=== PATIENT | female | born 2000 | race American Indian/Alaskan Native ===

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

== ENCOUNTER 2018-08-24 09:56 | Emergency (ER) | payer SELFPAY ==
[2018-08-24] MEDS ORDERED: TYLENOL PO ONE (13:35)
[2018-08-24] MEDS ORDERED: REGLAN PO ONE (13:35)
--- NOTE | 2018-08-24 13:36 | Emergency Department Report ---
ED Female HPI - General Chief complaint: Abdominal Pain Stated complaint: ABD PAIN/4DAYS Time Seen by Provider: 08/24/18 12:09 Source: patient Mode of arrival: Ambulatory Limitations: No Limitations - History of Present Illness Initial comments: This is a 17-year-old female nontoxic, well nourished in appearance, no acute signs of distress presents to the ED with c/o of nausea and pelvic pain 4 days. Patient stated "feels like menstrual cramping". Patient denies any vomiting. Patient describes pelvic pain as cramping and aching with level of 3/10 diffuse. Patient denies chest pain, short of breath, fever, chills, headache, stiff neck, numbness or tingling. Patient denies any vaginal bleeding. Patient denies any diarrhea or constipation. Patient denies any recent travels. Patient denies any allergies. Stated menstrual cycle was last month and coming up this week. MD Complaint: pelvic pain -: days(s) (4) Radiation: non-radiating Severity: mild Severity scale (0 -10): 3 Quality: cramping, aching Consistency: intermittent Improves with: none Worsens with: none Are you Now?: No Associated Symptoms: other (pelvic cramping). denies: vaginal discharge, vaginal bleeding, abdominal pain, nausea/vomiting, fever/chills, headaches, loss of appetite, dysuria, hematuria, rash, seizure, shortness of breath, syncope, weakness - Related Data Previous Rx's Medication Instructions Recorded Last Taken Type Ibuprofen [Motrin 400 MG tab] 400 mg PO Q8H PRN #30 tablet 05/19/14 Unknown Rx Ondansetron [Zofran] 4 mg PO Q6HR PRN #12 tablet 05/19/14 Unknown Rx Ibuprofen [Motrin] 600 mg PO Q8H PRN #15 tablet 05/14/16 Unknown Rx Ondansetron [Zofran Odt] 4 mg PO Q8HR #15 tab.rapdis 05/14/16 Unknown Rx Amoxicillin [Amoxicillin 400 MG/5 800 mg PO BID #140 ml 09/21/16 Unknown Rx ML] Ibuprofen Oral Liqd [Motrin] 400 mg PO TID PRN #120 ml 09/21/16 Unknown Rx Prednisolone Sod Phosphate 10 mg PO QDAY #5 tab.rapdis 04/10/17 Unknown Rx [Orapred Odt] Ondansetron [Zofran ODT TAB] 4 mg PO Q8H PRN #15 tab.rapdis 09/28/17 Unknown Rx Phenazopyridine [Pyridium] 100 mg PO Q8H PRN #9 tab 09/28/17 Unknown Rx Sulfamethoxazole/Trimethoprim 1 each PO BID 10 Days #20 tablet 09/28/17 Unknown Rx [Bactrim DS TAB] Cetirizine HCl [ZyrTEC] 10 mg PO QDAY 14 Days #14 capsule 11/09/17 Unknown Rx Fluticasone [Flonase] 1 spray NS QDAY 14 Days #1 bottle 11/09/17 Unknown Rx Ibuprofen [Motrin] 600 mg PO Q8H PRN #12 tablet 11/09/17 Unknown Rx Dicyclomine [Bentyl] 20 mg PO QID PRN #20 tablet 05/23/18 Unknown Rx Doxycycline [Vibramycin CAP] 100 mg PO Q12HR 14 Days #28 capsule 05/23/18 Unkn own Rx Ondansetron [Zofran Odt] 4 mg PO Q8HR PRN #20 tab.rapdis 05/23/18 Unknown Rx traMADol [Ultram] 50 mg PO Q6HR PRN #7 tablet 05/23/18 Unknown Rx Ibuprofen [Motrin] 600 mg PO Q8H PRN #20 tablet 08/24/18 Unknown Rx Ondansetron [Zofran Odt] 4 mg PO Q8HR PRN #20 tab.rapdis 08/24/18 Unknown Rx Allergies Allergy/AdvReac Type Severity Reaction Status Date / Time No Known Allergies Allergy Verified 11/09/17 17:21 ED Review of Systems ROS: Stated complaint: ABD PAIN/4DAYS Other details as noted in HPI Constitutional: denies: chills, fever Eyes: denies: eye pain, eye discharge, vision change ENT: denies: ear pain, throat pain Respiratory: denies: cough, shortness of breath, wheezing Cardiovascular: denies: chest pain, palpitations Endocrine: no symptoms reported Gastrointestinal: denies: abdominal pain, nausea, diarrhea Genitourinary: denies: urgency, dysuria, discharge Musculoskeletal: denies: back pain, joint swelling, arthralgia Skin: denies: rash, lesions Neurological: denies: headache, weakness, paresthesias Psychiatric: denies: anxiety, depression Hematological/Lymphatic: denies: easy bleeding, easy bruising ED Past Medical Hx - Past Medical History Previous Medical History?: No Additional medical history: sore throat. exposure to black mold for over 3 months. - Surgical History Past Surgical History?: No - Social History Smoking Status: Current Every Day Smoker Substance Use Type: None - Medications Home Medications: Home Medications Medication Instructions Recorded Confirmed Last Taken Type Ibuprofen [Motrin 400 MG tab] 400 mg PO Q8H PRN #30 tablet 05/19/14 Unknown Rx Ondansetron [Zofran] 4 mg PO Q6HR PRN #12 tablet 05/19/14 Unknown Rx Ibuprofen [Motrin] 600 mg PO Q8H PRN #15 tablet 05/14/16 Unknown Rx Ondansetron [Zofran Odt] 4 mg PO Q8HR #15 tab.rapdis 05/14/16 Unknown Rx Amoxicillin [Amoxicillin 400 MG/5 800 mg PO BID #140 ml 09/21/16 Unknown Rx ML] Ibuprofen Oral Liqd [Motrin] 400 mg PO TID PRN #120 ml 09/21/16 Unknown Rx Prednisolone Sod Phosphate 10 mg PO QDAY #5 tab.rapdis 09/21/16 Unknown Rx [Orapred Odt] Ondansetron [Zofran ODT TAB] 4 mg PO Q8H PRN #15 tab.rapdis 09/28/17 Unknown Rx Phenazopyridine [Pyridium] 100 mg PO Q8H PRN #9 tab 09/28/17 Unknown Rx Sulfamethoxazole/Trimethoprim 1 each PO BID 10 Days #20 tablet 09/28/17 Unknown Rx [Bactrim DS TAB] Cetirizine HCl [ZyrTEC] 10 mg PO QDAY 14 Days #14 capsule 11/09/17 Unknown Rx Fluticasone [Flonase] 1 spray NS QDAY 14 Days #1 bottle 11/09/17 Unknown Rx Ibuprofen [Motrin] 600 mg PO Q8H PRN #12 tablet 11/09/17 Unknown Rx Dicyclomine [Bentyl] 20 mg PO QID PRN #20 tablet 05/23/18 Unknown Rx Doxycycline [Vibramycin CAP] 100 mg PO Q12HR 14 Days #28 capsule 05/23/18 Unknown Rx Ondansetron [Zofran Odt] 4 mg PO Q8HR PRN #20 tab.rapdis 05/23/18 Unknown Rx traMADol [Ultram] 50 mg PO Q6HR PRN #7 tablet 05/23/18 Unknown Rx Ibuprofen [Motrin] 600 mg PO Q8H PRN #20 tablet 08/24/18 Unknown Rx Ondansetron [Zofran Odt] 4 mg PO Q8HR PRN #20 tab.rapdis 08/24/18 Unknown Rx ED Physical Exam - General Limitations: No Limitations General appearance: alert, in no apparent distress - Head Head exam: Present: atraumatic, normocephalic - Eye Eye exam: Present: normal appearance - Neck Neck exam: Present: normal inspection, full ROM. Absent: tenderness, meningismu s, lymphadenopathy - Respiratory Respiratory exam: Present: normal lung sounds bilaterally. Absent: respiratory distress, wheezes, rales, rhonchi, stridor, chest wall tenderness, accessory muscle use, decreased breath sounds, prolonged expiratory - Cardiovascular Cardiovascular Exam: Present: regular rate, normal rhythm, normal heart sounds. Absent: bradycardia, tachycardia, irregular rhythm, systolic murmur, diastolic murmur, rubs, gallop - GI/Abdominal GI/Abdominal exam: Present: soft, normal bowel sounds. Absent: distended, tenderness, guarding, rebound, rigid, diminished bowel sounds - Expanded GI/Abdominal Exam Expanded GI/Abdominal exam: Absent: psoas sign, Crews's sign, Rovsing's sign, tenderness at [place]bur[place]'s Point, ascites - Extremities Exam Extremities exam: Present: normal inspection, full ROM - Back Exam Back exam: Present: normal inspection, full ROM. Absent: tenderness, CVA tenderness (R), CVA tenderness (L), muscle spasm, paraspinal tenderness, vertebral tenderness, rash noted - Neurological Exam Neurological exam: Present: alert, oriented X3 - Psychiatric Psychiatric exam: Present: normal affect, normal mood - Skin Skin exam: Present: warm, dry, intact, normal color. Absent: rash ED Course Vital Signs 08/24/18 08/24/18 10:12 14:19 Temperature 98.3 F Pulse Rate 69 Respiratory 18 18 Rate Blood Pressure 92/71 O2 Sat by Pulse 99 Oximetry - Reevaluation(s) Reevaluation #1: 08/24/18 13:34 Patient is speaking in full sentences with no signs of distress noted. ED Medical Decision Making - Lab Data Result diagrams: 08/24/18 13:54 08/24/18 13:54 - Medical Decision Making This is a 17-year-old female that presents with pelvic cramping. Patient is stable and was examined by me. There is no abdominal tenderness. Negative signs of symptoms of appendicitis. Labs obtained. UA obtained. Patient is notified of the report with no questions noted by the patient. Vital signs are stable prior to discharge. Patient received medical treatment in the ED which patient stated symptoms has resolved and subsided. A by mouth challenge has been obtained and patient tolerated well with no nausea vomiting. Patient was notified of strict precautions of appendicitis symptoms and to return to the ED if symptoms occurs as soon as possible. Patient was also instructed to Follow-up with a primary care doctor in 3-5 days or if symptoms worsen and continue return to emergency room as soon as possible. At time of discharge, the patient does not seem toxic or ill in appearance. No acute signs of distress noted. Patient agrees to discharge treatment plan of care. No further questions noted by the patient. Critical care attestation.: If time is entered above; I have spent that time in minutes in the direct care of this critically ill patient, excluding procedure time. ED Disposition Clinical Impression: Pelvic cramping, Nausea Disposition: DC-01 TO HOME OR SELFCARE Is pt being admited?: No Does the pt Need Aspirin: No Condition: Stable Instructions: Abdominal Pain (ED) Additional Instructions: Follow-up with a primary care doctor in 3-5 days or if symptoms worsen and continue return to emergency room as soon as possible. Prescriptions: Ibuprofen [Motrin] 600 mg PO Q8H PRN #20 tablet PRN Reason: Pain Ondansetron [Zofran Odt] 4 mg PO Q8HR PRN #20 tab.rapdis PRN Reason: Nausea Referrals: YUE AKINS MD [Primary Care Provider] - 3-5 Days KYM URIAS MD [Referring] - 3-5 Days NAHOMI BRICENO MD [Staff Physician] - 3-5 Days [facility] [Outside] - 3-5 Days Forms: Work/School Release Form(ED)
[2018-08-24 13:39] LABS: Bacteria,Urine 1+ /HPF (Negative); Bilirubin,Urine NEG (Negative); Blood,Urine NEG (Negative); Color,Urine Yellow (Yellow); Mucus,Urine 3+ /HPF
[2018-08-24 14:07] LABS: Basophils % (Auto) 0.5 % (0.0-1.8); Eosinophils # (Auto) 0.1 K/mm3 (0.0-0.4); Eosinophils % (Auto) 0.6 % (0.0-4.3); Hematocrit 35.9 % (30.3-42.9); Hemoglobin 11.7 gm/dl (10.1-14.3); Lymphocytes # (Auto) 3.6 K/mm3 (1.2-5.4); Lymphocytes % (Auto) 36.1 % (13.4-35.0); Mean Corpuscular HGB Conc 33 % (30-34); Mean Corpuscular Volume 84 fl (79-97); Monocytes # (Auto) 0.9 K/mm3 (0.0-0.8); Monocytes % (Auto) 9.1 % (0.0-7.3); Platelet Count 239 K/mm3 (140-440); Red Blood Count 4.29 M/mm3 (3.65-5.03); Red Cell Distribution Width 16.8 % (13.2-15.2)
[2018-08-24 14:25] LABS: Alanine Aminotransferase 17 units/L (7-56); Albumin 4.2 g/dL (3.9-5); BUN/Creatinine Ratio 12; Blood Urea Nitrogen 6 mg/dL (7-17); Hemolysis Index 7
[2018-08-24 14:28] LABS: Bilirubin,Direct < 0.2 mg/dL (0-0.2)
[2018-08-24 14:38] VITALS: BP 97/64
== END 2018-08-24 14:40 | disposition home or self-care (01) ==
LOC: ED 09:56
DX: R10.2 Pelvic and perineal pain (principal); R11.0 Nausea; F17.200 Nicotine dependence, unspecified, uncomplicated
CPT/HCPCS: 36415; 80048; 80076; 81001; 83690; 84702; 85025; 99283

== ENCOUNTER 2019-01-30 17:41 | Emergency (ER) | payer SELFPAY ==
[2019-01-30] MEDS ORDERED: DELTASONE PO ONE (21:09)
[2019-01-30] MEDS ORDERED: TYLENOL PO ONE (21:09)
[2019-01-30] MEDS ORDERED: PROVENTIL IH ONE (21:09)
--- NOTE | 2019-01-30 21:31 | Emergency Department Report ---
- General Chief Complaint: Upper Respiratory Infection Stated Complaint: LATE CYCLE/COLD SYMPTOMS Time Seen by Provider: 01/30/19 21:07 Source: patient Mode of arrival: Ambulatory Limitations: No Limitations - History of Present Illness Initial Comments: The patient is a 17-year-old female who presents for URI symptoms secondary complaint of late menses last menstrual period 6 weeks ago URI symptoms cyst of cough wheezing cough is productive yellow-green nocturnal fever no MAXIMUM TEMPERATURE recorded by patient none and triaged today symptoms are exacerbated by foraminal exposure there is no history of asthma states occasional bronchitis and URIs there is no nausea vomiting no fever chills at this time. MD Complaint: cough, sore throat, rhinorrhea, nasal congestion Onset/Timin -: week(s) Severity: moderate Severity scale (0 -10): 5 Quality: aching Consistency: constant Improves With: nothing Worsens With: other (environmental exposure ) Context: sick contacts Associated Symptoms: fever, chills, headache, rhinorrhea, nasal congestion, cough, shortness of breath Treatments Prior to Arrival: none - Related Data Previous Rx's Medication Instructions Recorded Last Taken Type Ibuprofen [Motrin 400 MG tab] 400 mg PO Q8H PRN #30 tablet 05/19/14 Unknown Rx Ondansetron [Zofran] 4 mg PO Q6HR PRN #12 tablet 05/19/14 Unknown Rx Ibuprofen [Motrin] 600 mg PO Q8H PRN #15 tablet 05/14/16 Unknown Rx Ondansetron [Zofran Odt] 4 mg PO Q8HR #15 tab.rapdis 05/14/16 Unknown Rx Amoxicillin [Amoxicillin 400 MG/5 800 mg PO BID #140 ml 09/21/16 Unknown Rx ML] Ibuprofen Oral Liqd [Motrin] 400 mg PO TID PRN #120 ml 09/21/16 Unknown Rx Prednisolone Sod Phosphate 10 mg PO QDAY #5 tab.rapdis 09/21/16 Unknown Rx [Orapred Odt] Ondansetron [Zofran ODT TAB] 4 mg PO Q8H PRN #15 tab.rapdis 09/28/17 Unknown Rx Phenazopyridine [Pyridium] 100 mg PO Q8H PRN #9 tab 09/28/17 Unknown Rx Sulfamethoxazole/Trimethoprim 1 each PO BID 10 Days #20 tablet 04/17/18 Unknown Rx [Bactrim DS TAB] Cetirizine HCl [ZyrTEC] 10 mg PO QDAY 14 Days #14 capsule 11/09/17 Unknown Rx Fluticasone [Flonase] 1 spray NS QDAY 14 Days #1 bottle 11/09/17 Unknown Rx Ibuprofen [Motrin] 600 mg PO Q8H PRN #12 tablet 11/09/17 Unknown Rx DOXYCYCLINE Hyclate [Vibramycin 100 mg PO Q12HR 14 Days #28 capsule 05/23/18 Unknown Rx CAP] Dicyclomine [Bentyl] 20 mg PO QID PRN #20 tablet 05/23/18 Unknown Rx Ondansetron [Zofran Odt] 4 mg PO Q8HR PRN #20 tab.rapdis 05/23/18 Unknown Rx traMADol [Ultram] 50 mg PO Q6HR PRN #7 tablet 05/23/18 Unknown Rx Ibuprofen [Motrin] 600 mg PO Q8H PRN #20 tablet 08/24/18 Unknown Rx Ondansetron [Zofran Odt] 4 mg PO Q8HR PRN #20 tab.rapdis 08/24/18 Unknown Rx Butalb/Acetamin/Caff 50-325-40 1 - 2 each PO Q4H PRN #15 tablet 01/12/19 Unknown Rx [Fioricet 50-325-40] Ketorolac [Toradol] 10 mg PO Q8H PRN #20 tablet 01/12/19 Unknown Rx Promethazine [Phenergan] 25 mg PO Q6HR PRN #24 tab 01/12/19 Unknown Rx ALBUTEROL Inhaler (OR & NICU) 2 puff IH QID PRN #1 inhalation 01/31/19 Unknown Rx [ProAir HFA Inhaler] Azithromycin [Zithromax Z-WALI] 250 mg PO DAILY #6 tablet 01/31/19 Unknown Rx Benzonatate [Tessalon Perles] 100 mg PO Q8HR PRN #30 capsule 01/31/19 Unknown Rx Ibuprofen [Motrin 800 MG tab] 800 mg PO Q8HR PRN #30 tablet 01/31/19 Unknown Rx predniSONE [Deltasone] 40 mg PO QDAY 5 Days #10 tab 01/31/19 Unknown Rx Allergies Allergy/AdvReac Type Severity Reaction Status Date / Time No Known Allergies Allergy Verified 10/21/18 08:09 ED Review of Systems ROS: Stated complaint: LATE CYCLE/COLD SYMPTOMS Other details as noted in HPI Constitutional: chills, fever. denies: diaphoresis, malaise, weakness Eyes: as per HPI ENT: congestion. denies: ear pain, throat pain Respiratory: cough, shortness of breath, wheezing Cardiovascular: denies: chest pain, palpitations Endocrine: no symptoms reported Gastrointestinal: denies: abdominal pain, nausea, vomiting, diarrhea Genitourinary: denies: urgency, dysuria, frequency, hematuria, discharge, dyspareunia Musculoskeletal: denies: back pain, joint swelling, arthralgia Skin: denies: rash, lesions Neurological: denies: headache, weakness, paresthesias Psychiatric: denies: anxiety, depression Hematological/Lymphatic: denies: easy bleeding, easy bruising ED Past Medical Hx - Past Medical History Hx Headaches / Migraines: Yes Additional medical history: exposure to black mold for over 3 months. - Surgical History Past Surgical History?: No - Social History Smoking Status: Never Smoker Substance Use Type: None - Medications Home Medications: Home Medications Medication Instructions Recorded Confirmed Last Taken Type Ibuprofen [Motrin 400 MG tab] 400 mg PO Q8H PRN #30 tablet 05/19/14 Unknown Rx Ondansetron [Zofran] 4 mg PO Q6HR PRN #12 tablet 05/19/14 Unknown Rx Ibuprofen [Motrin] 600 mg PO Q8H PRN #15 tablet 05/14/16 Unknown Rx Ondansetron [Zofran Odt] 4 mg PO Q8HR #15 tab.rapdis 05/14/16 Unknown Rx Amoxicillin [Amoxicillin 400 MG/5 800 mg PO BID #140 ml 09/21/16 Unknown Rx ML] Ibuprofen Oral Liqd [Motrin] 400 mg PO TID PRN #120 ml 09/21/16 Unknown Rx Prednisolone Sod Phosphate 10 mg PO QDAY #5 tab.rapdis 09/21/16 Unknown Rx [Orapred Odt] Ondansetron [Zofran ODT TAB] 4 mg PO Q8H PRN #15 tab.rapdis 09/28/17 Unknown Rx Phenazopyridine [Pyridium] 100 mg PO Q8H PRN #9 tab 09/28/17 Unknown Rx Sulfamethoxazole/Trimethoprim 1 each PO BID 10 Days #20 tablet 09/28/17 Unknown Rx [Bactrim DS TAB] Cetirizine HCl [ZyrTEC] 10 mg PO QDAY 14 Days #14 capsule 11/09/17 Unknown Rx Fluticasone [Flonase] 1 spray NS QDAY 14 Days #1 bottle 11/09/17 Unknown Rx Ibuprofen [Motrin] 600 mg PO Q8H PRN #12 tablet 11/09/17 Unknown Rx DOXYCYCLINE Hyclate [Vibramycin 100 mg PO Q12HR 14 Days #28 capsule 05/23/18 Unknown Rx CAP] Dicyclomine [Bentyl] 20 mg PO QID PRN #20 tablet 05/23/18 Unknown Rx Ondansetron [Zofran Odt] 4 mg PO Q8HR PRN #20 tab.rapdis 05/23/18 Unknown Rx traMADol [Ultram] 50 mg PO Q6HR PRN #7 tablet 05/23/18 Unknown Rx Ibuprofen [Motrin] 600 mg PO Q8H PRN #20 tablet 08/24/18 Unknown Rx Ondansetron [Zofran Odt] 4 mg PO Q8HR PRN #20 tab.rapdis 08/24/18 Unknown Rx Butalb/Acetamin/Caff 50-325-40 1 - 2 each PO Q4H PRN #15 tablet 01/12/19 Unknown Rx [Fioricet 50-325-40] Ketorolac [Toradol] 10 mg PO Q8H PRN #20 tablet 01/12/19 Unknown Rx Promethazine [Phenergan] 25 mg PO Q6HR PRN #24 tab 01/12/19 Unknown Rx ALBUTEROL Inhaler (OR & NICU) 2 puff IH QID PRN #1 inhalation 01/31/19 Unknown Rx [ProAir HFA Inhaler] Azithromycin [Zithromax Z-WALI] 250 mg PO DAILY #6 tablet 01/31/19 Unknown Rx Benzonatate [Tessalon Perles] 100 mg PO Q8HR PRN #30 capsule 01/31/19 Unknown Rx Ibuprofen [Motrin 800 MG tab] 800 mg PO Q8HR PRN #30 tablet 01/31/19 Unknown Rx predniSONE [Deltasone] 40 mg PO QDAY 5 Days #10 tab 01/31/19 Unknown Rx ED Physical Exam - General Limitations: No Limitations General appearance: alert, in no apparent distress - Head Head exam: Present: atraumatic, normocephalic - Eye Eye exam: Present: normal appearance, PERRL, EOMI. Absent: conjunctival injection, nystagmus - ENT ENT exam: Present: mucous membranes moist, TM's normal bilaterally, normal external ear exam - Expanded ENT Exam Expanded Ear exam: Present: normal external inspection Mouth exam: Absent: trismus Throat exam: Positive: tonsillar erythema, tonsillomegaly, other (uvula midline moderate erythema swelling no stridor no exudate no peritonsilor abscess ). Negative: tonsillar exudate, R peritonsillar mass, L peritonsillar mass - Neck Neck exam: Present: normal inspection, full ROM. Absent: tenderness, meningismus, lymphadenopathy, thyromegaly - Respiratory Respiratory exam: Present: normal lung sounds bilaterally, wheezes. Absent: respiratory distress, rales, rhonchi, stridor, chest wall tenderness, prolonged expiratory - Cardiovascular Cardiovascular Exam: Present: regular rate, normal rhythm, normal heart sounds. Absent: systolic murmur, diastolic murmur, rubs, gallop - GI/Abdominal GI/Abdominal exam: Present: soft, normal bowel sounds. Absent: distended, tenderness, guarding, rebound, rigid, bruit, hernia - Extremities Exam Extremities exam: Present: normal inspection, full ROM, normal capillary refill. Absent: tenderness, pedal edema, joint swelling, calf tenderness - Back Exam Back exam: Present: normal inspection. Absent: full ROM, tenderness, CVA tenderness (R), CVA tenderness (L) - Neurological Exam Neurological exam: Present: alert, oriented X3, CN II-XII intact, normal gait, reflexes normal. Absent: motor sensory deficit - Psychiatric Psychiatric exam: Present: normal affect, normal mood - Skin Skin exam: Present: warm, dry, intact, normal color. Absent: rash ED Course Vital Signs 01/30/19 01/30/19 01/30/19 17:50 17:54 21:50 Temperature 98 F Pulse Rate 64 67 Pulse Rate [ 82 Bilateral Throughout] Respiratory 20 16 Rate Respiratory 20 Rate [Bilateral Throughout] Blood Pressure 123/83 Blood Pressure 113/86 [Right] O2 Sat by Pulse 100 100 Oximetry ED Medical Decision Making - Medical Decision Making pt now refuses cxr will tx for bronchitis, wheezing is resolve, will dc with rx of albuterol prednisone, ibuprofen tessalon pearls, azithromycin, pt will follow up with pcp in 2-3 days return to ed if symptoms worsen. Critical care attestation.: If time is entered above; I have spent that time in minutes in the direct care of this critically ill patient, excluding procedure time. ED Disposition Clinical Impression: Bronchitis Disposition: DC-01 TO HOME OR SELFCARE Is pt being admited?: No Does the pt Need Aspirin: No Condition: Stable Instructions: Acute Bronchitis (ED) Prescriptions: predniSONE [Deltasone] 40 mg PO QDAY 5 Days #10 tab Ibuprofen [Motrin 800 MG tab] 800 mg PO Q8HR PRN #30 tablet PRN Reason: pain ALBUTEROL Inhaler (OR & NICU) [ProAir HFA Inhaler] 2 puff IH QID PRN #1 inhalation PRN Reason: Shortness Of Breath Benzonatate [Tessalon Perles] 100 mg PO Q8HR PRN #30 capsule PRN Reason: cough Azithromycin [Zithromax Z-WALI] 250 mg PO DAILY #6 tablet Referrals: DEE HARPER MD [Primary Care Provider] - 3-5 Days Forms: Work/School Release Form(ED) Time of Disposition: 00:07
[2019-01-30 23:14] LABS: Bilirubin,Urine NEG (Negative); Blood,Urine NEG (Negative); Color,Urine Yellow (Yellow); Mucus,Urine FEW /HPF; Protein,Urine <15 mg/dL mg/dL (Negative); RBC,Urine < 1.0 /HPF (0.0-6.0); Urobilinogen,Urine < 2.0 mg/dL (<2.0)
[2019-01-30 23:17] LABS: HCG Qualitative,Urine Negative (Negative)
[2019-01-31 01:39] VITALS: BP 128/76
== END 2019-01-31 00:20 | disposition home or self-care (01) ==
LOC: ED 17:41
DX: J40 Bronchitis, not specified as acute or chronic (principal); G43.909 Migraine, unspecified, not intractable, without status migrainosus; Z79.899 Other long term (current) drug therapy
CPT/HCPCS: 81001; 81025; 94644; 99283; J7512

== ENCOUNTER 2019-05-07 07:29 | Emergency (ER) | payer SELFPAY ==
[2019-05-07 07:35] VITALS: BP 126/75
--- NOTE | 2019-05-07 08:42 | Emergency Department Report ---
ED Female HPI - General Chief complaint: Vaginal Bleeding Stated complaint: 5WKS /BLEEDING Time Seen by Provider: 05/07/19 08:37 Source: patient Mode of arrival: Ambulatory Limitations: No Limitations - History of Present Illness Initial comments: 18-year-old -[place] female presents to the emergency room complaining of vaginal bleeding that started yesterday about 3-4 PM and at that more like spotting around 8-9 PM and this morning she sees blood in the toilet and when she wipes but not on the pad. Patient is 1 para 0 with one miscarriage. Patient last menstrual period was 04/03/2019. Patient reports that she has mi ld cramping. Patient denies any nausea vomiting no diarrhea patient denies any headache fever chills shortness of breath or chest pain MD Complaint: vaginal bleeding, pelvic pain Onset/Timin -: days(s) Location: suprapubic Radiation: non-radiating Severity scale (0 -10): 4 Quality: cramping Consistency: intermittent Are you Now?: Yes (5 weeks) Last Menstrual Period: 04/03/19 EDC: 01/08/20 Associated Symptoms: vaginal bleeding - Related Data Sexually active: Yes : 1 Para: 0 Previous Rx's Medication Instructions Recorded Last Taken Type Ibuprofen [Motrin 400 MG tab] 400 mg PO Q8H PRN #30 tablet 05/19/14 Unknown Rx Ondansetron [Zofran] 4 mg PO Q6HR PRN #12 tablet 05/19/14 Unknown Rx Ibuprofen [Motrin] 600 mg PO Q8H PRN #15 tablet 05/14/16 Unknown Rx Ondansetron [Zofran Odt] 4 mg PO Q8HR #15 tab.rapdis 05/14/16 Unknown Rx Amoxicillin [Amoxicillin 400 MG/5 800 mg PO BID #140 ml 09/21/16 Unknown Rx ML] Ibuprofen Oral Liqd [Motrin] 400 mg PO TID PRN #120 ml 09/21/16 Unknown Rx Prednisolone Sod Phosphate 10 mg PO QDAY #5 tab.rapdis 09/21/16 Unknown Rx [Orapred Odt] Ondansetron [Zofran ODT TAB] 4 mg PO Q8H PRN #15 tab.rapdis 09/28/17 Unknown Rx Phenazopyridine [Pyridium] 100 mg PO Q8H PRN #9 tab 09/28/17 Unknown Rx Sulfamethoxazole/Trimethoprim 1 each PO BID 10 Days #20 tablet 09/28/17 Unknown Rx [Bactrim DS TAB] Cetirizine HCl [ZyrTEC] 10 mg PO QDAY 14 Days #14 capsule 11/09/17 Unknown Rx Fluticasone [Flonase] 1 spray NS QDAY 14 Days #1 bottle 11/09/17 Unknown Rx Ibuprofen [Motrin] 600 mg PO Q8H PRN #12 tablet 11/09/17 Unknown Rx DOXYCYCLINE Hyclate [Vibramycin 100 mg PO Q12HR 14 Days #28 capsule 05/23/18 Unknown Rx CAP] Dicyclomine [Bentyl] 20 mg PO QID PRN #20 tablet 05/23/18 Unknown Rx Ondansetron [Zofran Odt] 4 mg PO Q8HR PRN #20 tab.rapdis 05/23/18 Unknown Rx traMADoL [Ultram] 50 mg PO Q6HR PRN #7 tablet 05/23/18 Unknown Rx Ibuprofen [Motrin] 600 mg PO Q8H PRN #20 tablet 08/24/18 Unknown Rx Ondansetron [Zofran Odt] 4 mg PO Q8HR PRN #20 tab.rapdis 08/24/18 Unknown Rx Butalb/Acetamin/Caff 50-325-40 1 - 2 each PO Q4H PRN #15 tablet 01/12/19 Unknown Rx [Fioricet 50-325-40] Ketorolac [Toradol] 10 mg PO Q8H PRN #20 tablet 01/12/19 Unknown Rx Promethazine [Phenergan] 25 mg PO Q6HR PRN #24 tab 01/12/19 Unknown Rx ALBUTEROL Inhaler (OR & NICU) 2 puff IH QID PRN #1 inhalation 01/31/19 Unknown Rx [ProAir HFA Inhaler] Azithromycin [Zithromax Z-WALI] 250 mg PO DAILY #6 tablet 01/31/19 Unknown Rx Benzonatate [Tessalon Perles] 100 mg PO Q8HR PRN #30 capsule 01/31/19 Unknown Rx Ibuprofen [Motrin 800 MG tab] 800 mg PO Q8HR PRN #30 tablet 01/31/19 Unknown Rx predniSONE [Deltasone] 40 mg PO QDAY 5 Days #10 tab 01/31/19 Unknown Rx Allergies Allergy/AdvReac Type Severity Reaction Status Date / Time No Known Allergies Allergy Verified 10/21/18 08:09 ED Review of Systems ROS: Stated complaint: 5WKS /BLEEDING Other details as noted in HPI Comment: All other systems reviewed and negative ED Past Medical Hx - Past Medical History Previous Medical History?: Yes Hx Headaches / Migraines: Yes Additional medical history: exposure to black mold for over 3 months. - Surgical History Past Surgical History?: No - Social History Smoking Status: Former Smoker - Medications Home Medications: Home Medications Medication Instructions Recorded Confirmed Last Taken Type Ibuprofen [Motrin 400 MG tab] 400 mg PO Q8H PRN #30 tablet 05/19/14 Unknown Rx Ondansetron [Zofran] 4 mg PO Q6HR PRN #12 tablet 05/19/14 Unknown Rx Ibuprofen [Motrin] 600 mg PO Q8H PRN #15 tablet 05/14/16 Unknown Rx Ondansetron [Zofran Odt] 4 mg PO Q8HR #15 tab.rapdis 05/14/16 Unknown Rx Amoxicillin [Amoxicillin 400 MG/5 800 mg PO BID #140 ml 09/21/16 Unknown Rx ML] Ibuprofen Oral Liqd [Motrin] 400 mg PO TID PRN #120 ml 09/21/16 Unknown Rx Prednisolone Sod Phosphate 10 mg PO QDAY #5 tab.rapdis 09/21/16 Unknown Rx [Orapred Odt] Ondansetron [Zofran ODT TAB] 4 mg PO Q8H PRN #15 tab.rapdis 09/28/17 Unknown Rx Phenazopyridine [Pyridium] 100 mg PO Q8H PRN #9 tab 09/28/17 Unknown Rx Sulfamethoxazole/Trimethoprim 1 each PO BID 10 Days #20 tablet 09/28/17 Unknown Rx [Bactrim DS TAB] Cetirizine HCl [ZyrTEC] 10 mg PO QDAY 14 Days #14 capsule 11/09/17 Unknown Rx Fluticasone [Flonase] 1 spray NS QDAY 14 Days #1 bottle 11/09/17 Unknown Rx Ibuprofen [Motrin] 600 mg PO Q8H PRN #12 tablet 11/09/17 Unknown Rx DOXYCYCLINE Hyclate [Vibramycin 100 mg PO Q12HR 14 Days #28 capsule 05/23/18 Unknown Rx CAP] Dicyclomine [Bentyl] 20 mg PO QID PRN #20 tablet 05/23/18 Unknown Rx Ondansetron [Zofran Odt] 4 mg PO Q8HR PRN #20 tab.rapdis 05/23/18 Unknown Rx traMADoL [Ultram] 50 mg PO Q6HR PRN #7 tablet 05/23/18 Unknown Rx Ibuprofen [Motrin] 600 mg PO Q8H PRN #20 tablet 08/24/18 Unknown Rx Ondansetron [Zofran Odt] 4 mg PO Q8HR PRN #20 tab.rapdis 08/24/18 Unknown Rx Butalb/Acetamin/Caff 50-325-40 1 - 2 each PO Q4H PRN #15 tablet 01/12/19 Unknown Rx [Fioricet 50-325-40] Ketorolac [Toradol] 10 mg PO Q8H PRN #20 tablet 01/12/19 Unknown Rx Promethazine [Phenergan] 25 mg PO Q6HR PRN #24 tab 01/12/19 Unknown Rx ALBUTEROL Inhaler (OR & NICU) 2 puff IH QID PRN #1 inhalation 01/31/19 Unknown Rx [ProAir HFA Inhaler] Azithromycin [Zithromax Z-WALI] 250 mg PO DAILY #6 tablet 01/31/19 Unknown Rx Benzonatate [Tessalon Perles] 100 mg PO Q8HR PRN #30 capsule 01/31/19 Unknown Rx Ibuprofen [Motrin 800 MG tab] 800 mg PO Q8HR PRN #30 tablet 01/31/19 Unknown Rx predniSONE [Deltasone] 40 mg PO QDAY 5 Days #10 tab 01/31/19 Unknown Rx ED Physical Exam - General Limitations: No Limitations General appearance: alert, in no apparent distress - Head Head exam: Present: atraumatic, normocephalic - Eye Eye exam: Present: normal appearance - ENT ENT exam: Present: mucous membranes moist - Neck Neck exam: Present: normal inspection, full ROM - Respiratory Respiratory exam: Present: normal lung sounds bilaterally. Absent: respiratory distress - Cardiovascular Cardiovascular Exam: Present: regular rate, normal rhythm. Absent: systolic murmur, diastolic murmur, rubs, gallop - GI/Abdominal GI/Abdominal exam: Present: soft, normal bowel sounds. Absent: distended, t enderness - Neurological Exam Neurological exam: Present: alert, oriented X3, normal gait - Psychiatric Psychiatric exam: Present: normal affect, normal mood - Skin Skin exam: Present: warm, dry, intact, normal color. Absent: rash ED Course Vital Signs 05/07/19 07:31 Temperature 98.3 F Pulse Rate 66 Respiratory 18 Rate Blood Pressure 126/75 O2 Sat by Pulse 100 Oximetry ED Medical Decision Making - Lab Data Result diagrams: 05/07/19 08:50 Laboratory Last Values WBC 5.9 K/mm3 (4.5-11.0) 05/07/19 08:50 RBC 4.46 M/mm3 (3.65-5.03) 05/07/19 08:50 Hgb 11.7 gm/dl (10.1-14.3) 05/07/19 08:50 Hct 36.5 % (30.3-42.9) 05/07/19 08:50 MCV 82 fl (79-97) 05/07/19 08:50 MCH 26 pg (28-32) L 05/07/19 08:50 MCHC 32 % (30-34) 05/07/19 08:50 RDW 17.1 % (13.2-15.2) H 05/07/19 08:50 Plt Count 292 K/mm3 (140-440) 05/07/19 08:50 Lymph % (Auto) 41.3 % (13.4-35.0) H 05/07/19 08:50 Ness % (Auto) 10.7 % (0.0-7.3) H 05/07/19 08:50 Eos % (Auto) 1.3 % (0.0-4.3) 05/07/19 08:50 Baso % (Auto) 0.7 % (0.0-1.8) 05/07/19 08:50 Lymph # 2.5 K/mm3 (1.2-5.4) 05/07/19 08:50 Ness # 0.6 K/mm3 (0.0-0.8) 05/07/19 08:50 Eos # 0.1 K/mm3 (0.0-0.4) 05/07/19 08:50 Baso # 0.0 K/mm3 (0.0-0.1) 05/07/19 08:50 Seg Neutrophils % 46.0 % (40.0-70.0) 05/07/19 08:50 Seg Neutrophils # 2.7 K/mm3 (1.8-7.7) 05/07/19 08:50 HCG, Qual Negative (Negative) 05/07/19 08:50 Urine Color Yellow (Yellow) 05/07/19 09:56 Urine Turbidity Clear (Clear) 05/07/19 09:56 Urine pH 7.0 (5.0-7.0) 05/07/19 09:56 Ur Specific [place] 1.015 (1.003-1.030) 05/07/19 09:56 Urine Protein 30 mg/dl mg/dL (Negative) 05/07/19 09:56 Urine Glucose (UA) Neg mg/dL (Negative) 05/07/19 09:56 Urine Ketones Neg mg/dL (Negative) 05/07/19 09:56 Urine Blood Lg (Negative) 05/07/19 09:56 Urine Nitrite Neg (Negative) 05/07/19 09:56 Urine Bilirubin Neg (Negative) 05/07/19 09:56 Urine Urobilinogen < 2.0 mg/dL (<2.0) 05/07/19 09:56 Ur Leukocyte Esterase Tr (Negative) 05/07/19 09:56 Urine WBC (Auto) 6.0 /HPF (0.0-6.0) 05/07/19 09:56 Urine RBC (Auto) 155.0 /HPF (0.0-6.0) 05/07/19 09:56 U Epithel Cells (Auto) 6.0 /HPF (0-13.0) 05/07/19 09:56 Urine Bacteria (Auto) 1+ /HPF (Negative) 05/07/19 09:56 Urine Mucus 1+ /HPF 05/07/19 09:56 Blood Type O POSITIVE 05/07/19 08:50 Antibody Screen Negative 05/07/19 08:50 - Medical Decision Making 18-year-old -[place] female presents to the emergency room complaining of vaginal bleeding that started yesterday about 3-4 PM and at that more like spotting around 8-9 PM and this morning she sees blood in the toilet and when she wipes but not on the pad. Patient is 1 para 0 with one miscarriage. Patient last menstrual period was 04/03/2019. Patient reports that she has mild cramping. Patient denies any nausea vomiting no diarrhea patient denies any headache fever chills shortness of breath or chest pain Critical care attestation.: If time is entered above; I have spent that time in minutes in the direct care of this critically ill patient, excluding procedure time. ED Disposition Clinical Impression: Vaginal bleeding, Negative test, Abdominal cramping Disposition: - TO HOME OR SELFCARE Is pt being admited?: No Does the pt Need Aspirin: No Condition: Stable Additional Instructions: test is negative. Urinalysis is negative for any acute findings. Follow-up with [facility] as needed. Referrals: PRIMARY CARE, [Primary Care Provider] - 3-5 Days [facility] [Provider Group] - 3-5 Days Forms: Work/School Release Form(ED)
[2019-05-07 09:12] LABS: Basophils % (Auto) 0.7 % (0.0-1.8); Eosinophils # (Auto) 0.1 K/mm3 (0.0-0.4); Eosinophils % (Auto) 1.3 % (0.0-4.3); Hematocrit 36.5 % (30.3-42.9); Hemoglobin 11.7 gm/dl (10.1-14.3); Lymphocytes # (Auto) 2.5 K/mm3 (1.2-5.4); Lymphocytes % (Auto) 41.3 % (13.4-35.0); Mean Corpuscular HGB Conc 32 % (30-34); Mean Corpuscular Volume 82 fl (79-97); Monocytes # (Auto) 0.6 K/mm3 (0.0-0.8); Monocytes % (Auto) 10.7 % (0.0-7.3); Platelet Count 292 K/mm3 (140-440); Red Blood Count 4.46 M/mm3 (3.65-5.03); Red Cell Distribution Width 17.1 % (13.2-15.2)
[2019-05-07 10:52] LABS: Bacteria,Urine 1+ /HPF (Negative); Bilirubin,Urine NEG (Negative); Blood,Urine LG (Negative); Color,Urine Yellow (Yellow); Mucus,Urine 1+ /HPF; Urobilinogen,Urine < 2.0 mg/dL (<2.0)
== END 2019-05-07 11:04 | disposition home or self-care (01) ==
LOC: ED 07:29
DX: N93.9 Abnormal uterine and vaginal bleeding, unspecified (principal); G43.909 Migraine, unspecified, not intractable, without status migrainosus; Z32.02 Encounter for pregnancy test, result negative; Z87.891 Personal history of nicotine dependence; Z79.899 Other long term (current) drug therapy
CPT/HCPCS: 36415; 81001; 84703; 85025; 86850; 86900; 86901

== ENCOUNTER 2019-06-03 19:02 | Emergency (ER) | payer SELFPAY ==
--- NOTE | 2019-06-03 19:08 | Event Note ---
ED Screening Note Date of service: 06/03/19 Time: 19:07 ED Screening Note: 18 y o f presents with low pelvis and back pain x 3 days This initial assessment/diagnostic orders/clinical plan/treatment(s) is/are subject to change based on patients health status, clinical progression and re-assessment by fellow clinical providers in the ED. Further treatment and workup at subsequent clinical providers discretion. Patient/guardian urged not to elope from the ED as their condition may be serious if not clinically assessed and managed. Initial orders include: ua, upt
[2019-06-03 22:34] LABS: HCG Qualitative,Urine Negative (Negative)
[2019-06-03 22:35] LABS: Bilirubin,Urine NEG (Negative); Blood,Urine SM (Negative); Color,Urine Yellow (Yellow); Mucus,Urine FEW /HPF; Urobilinogen,Urine < 2.0 mg/dL (<2.0)
--- NOTE | 2019-06-03 22:47 | Emergency Department Report ---
ED Female HPI - General Chief complaint: Abdominal Pain Stated complaint: ABDOMINAL/BACK PAIN Time Seen by Provider: 06/03/19 22:13 Source: patient Mode of arrival: Ambulatory Limitations: No Limitations - History of Present Illness Initial comments: 18 y o f presents with low pelvis and back pain x 3 days. Patient denies any vaginal bleeding vaginal discharge. She sexually active. Has no known drug allergies currently takes no medications on a daily basis and has no past medical history. MD Complaint: dysuria Onset/Timin -: days(s) Radiation: suprapubic Quality: sharp Consistency: intermittent Improves with: none Worsens with: urination Are you Now?: No - Related Data Previous Rx's Medication Instructions Recorded Last Taken Type Ibuprofen [Motrin 400 MG tab] 400 mg PO Q8H PRN #30 tablet 05/19/14 Unknown Rx Ondansetron [Zofran] 4 mg PO Q6HR PRN #12 tablet 05/19/14 Unknown Rx Ibuprofen [Motrin] 600 mg PO Q8H PRN #15 tablet 05/14/16 Unknown Rx Ondansetron [Zofran Odt] 4 mg PO Q8HR #15 tab.rapdis 05/14/16 Unknown Rx Amoxicillin [Amoxicillin 400 MG/5 800 mg PO BID #140 ml 09/21/16 Unknown Rx ML] Ibuprofen Oral Liqd [Motrin] 400 mg PO TID PRN #120 ml 09/21/16 Unknown Rx Prednisolone Sod Phosphate 10 mg PO QDAY #5 tab.rapdis 09/21/16 Unknown Rx [Orapred Odt] Ondansetron [Zofran ODT TAB] 4 mg PO Q8H PRN #15 tab.rapdis 09/28/17 Unknown Rx Phenazopyridine [Pyridium] 100 mg PO Q8H PRN #9 tab 09/28/17 Unknown Rx Sulfamethoxazole/Trimethoprim 1 each PO BID 10 Days #20 tablet 09/28/17 Unknown Rx [Bactrim DS TAB] Cetirizine HCl [ZyrTEC] 10 mg PO QDAY 14 Days #14 capsule 11/09/17 Unknown Rx Fluticasone [Flonase] 1 spray NS QDAY 14 Days #1 bottle 11/09/17 Unknown Rx Ibuprofen [Motrin] 600 mg PO Q8H PRN #12 tablet 11/09/17 Unknown Rx DOXYCYCLINE Hyclate [Vibramycin 100 mg PO Q12HR 14 Days #28 capsule 05/23/18 Unknown Rx CAP] Dicyclomine [Bentyl] 20 mg PO QID PRN #20 tablet 05/23/18 Unknown Rx Ondansetron [Zofran Odt] 4 mg PO Q8HR PRN #20 tab.rapdis 05/23/18 Unknown Rx traMADoL [Ultram] 50 mg PO Q6HR PRN #7 tablet 05/23/18 Unknown Rx Ibuprofen [Motrin] 600 mg PO Q8H PRN #20 tablet 08/24/18 Unknown Rx Ondansetron [Zofran Odt] 4 mg PO Q8HR PRN #20 tab.rapdis 08/24/18 Unknown Rx Butalb/Acetamin/Caff 50-325-40 1 - 2 each PO Q4H PRN #15 tablet 01/12/19 Unknown Rx [Fioricet 50-325-40] Ketorolac [Toradol] 10 mg PO Q8H PRN #20 tablet 01/12/19 Unknown Rx Promethazine [Phenergan] 25 mg PO Q6HR PRN #24 tab 01/12/19 Unknown Rx ALBUTEROL Inhaler (OR & NICU) 2 puff IH QID PRN #1 inhalation 01/31/19 Unknown Rx [ProAir HFA Inhaler] Azithromycin [Zithromax Z-WALI] 250 mg PO DAILY #6 tablet 01/31/19 Unknown Rx Benzonatate [Tessalon Perles] 100 mg PO Q8HR PRN #30 capsule 01/31/19 Unknown Rx Ibuprofen [Motrin 800 MG tab] 800 mg PO Q8HR PRN #30 tablet 01/31/19 Unknown Rx predniSONE [Deltasone] 40 mg PO QDAY 5 Days #10 tab 01/31/19 Unknown Rx Nitrofurantoin [place]/M-Cryst 100 mg PO Q12HR #20 capsule 06/03/19 Unknown Rx [Macrobid CAP] Allergies Allergy/AdvReac Type Severity Reaction Status Date / Time No Known Allergies Allergy Verified 10/21/18 08:09 ED Review of Systems ROS: Stated complaint: ABDOMINAL/BACK PAIN Other details as noted in HPI Comment: All other systems reviewed and negative ED Past Medical Hx - Past Medical History Previous Medical History?: Yes Hx Headaches / Migraines: Yes Additional medical history: exposure to black mold for over 3 months. - Surgical History Past Surgical History?: No - Social History Smoking Status: Current Every Day Smoker Substance Use Type: Marijuana - Medications Home Medications: Home Medications Medication Instructions Recorded Confirmed Last Taken Type Ibuprofen [Motrin 400 MG tab] 400 mg PO Q8H PRN #30 tablet 05/19/14 Unknown Rx Ondansetron [Zofran] 4 mg PO Q6HR PRN #12 tablet 05/19/14 Unknown Rx Ibuprofen [Motrin] 600 mg PO Q8H PRN #15 tablet 05/14/16 Unknown Rx Ondansetron [Zofran Odt] 4 mg PO Q8HR #15 tab.rapdis 05/14/16 Unknown Rx Amoxicillin [Amoxicillin 400 MG/5 800 mg PO BID #140 ml 09/21/16 Unknown Rx ML] Ibuprofen Oral Liqd [Motrin] 400 mg PO TID PRN #120 ml 09/21/16 Unknown Rx Prednisolone Sod Phosphate 10 mg PO QDAY #5 tab.rapdis 09/21/16 Unknown Rx [Orapred Odt] Ondansetron [Zofran ODT TAB] 4 mg PO Q8H PRN #15 tab.rapdis 09/28/17 Unknown Rx Phenazopyridine [Pyridium] 100 mg PO Q8H PRN #9 tab 09/28/17 Unknown Rx Sulfamethoxazole/Trimethoprim 1 each PO BID 10 Days #20 tablet 09/28/17 Unknown Rx [Bactrim DS TAB] Cetirizine HCl [ZyrTEC] 10 mg PO QDAY 14 Days #14 capsule 11/09/17 Unknown Rx Fluticasone [Flonase] 1 spray NS QDAY 14 Days #1 bottle 11/09/17 Unknown Rx Ibuprofen [Motrin] 600 mg PO Q8H PRN #12 tablet 11/09/17 Unknown Rx DOXYCYCLINE Hyclate [Vibramycin 100 mg PO Q12HR 14 Days #28 capsule 05/23/18 Unknown Rx CAP] Dicyclomine [Bentyl] 20 mg PO QID PRN #20 tablet 05/23/18 Unknown Rx Ondansetron [Zofran Odt] 4 mg PO Q8HR PRN #20 tab.rapdis 05/23/18 Unknown Rx traMADoL [Ultram] 50 mg PO Q6HR PRN #7 tablet 05/23/18 Unknown Rx Ibuprofen [Motrin] 600 mg PO Q8H PRN #20 tablet 08/24/18 Unknown Rx Ondansetron [Zofran Odt] 4 mg PO Q8HR PRN #20 tab.rapdis 08/24/18 Unknown Rx Butalb/Acetamin/Caff 50-325-40 1 - 2 each PO Q4H PRN #15 tablet 01/12/19 Unknown Rx [Fioricet 50-325-40] Ketorolac [Toradol] 10 mg PO Q8H PRN #20 tablet 01/12/19 Unknown Rx Promethazine [Phenergan] 25 mg PO Q6HR PRN #24 tab 01/12/19 Unknown Rx ALBUTEROL Inhaler (OR & NICU) 2 puff IH QID PRN #1 inhalation 01/31/19 Unknown Rx [ProAir HFA Inhaler] Azithromycin [Zithromax Z-WALI] 250 mg PO DAILY #6 tablet 01/31/19 Unknown Rx Benzonatate [Tessalon Perles] 100 mg PO Q8HR PRN #30 capsule 01/31/19 Unknown Rx Ibuprofen [Motrin 800 MG tab] 800 mg PO Q8HR PRN #30 tablet 01/31/19 Unknown Rx predniSONE [Deltasone] 40 mg PO QDAY 5 Days #10 tab 01/31/19 Unknown Rx Nitrofurantoin [place]/M-Cryst 100 mg PO Q12HR #20 capsule 06/03/19 Unknown Rx [Macrobid CAP] ED Physical Exam - General Limitations: No Limitations General appearance: alert, in no apparent distress - Head Head exam: Present: atraumatic, normocephalic - Eye Eye exam: Present: normal appearance - ENT ENT exam: Present: mucous membranes moist - Neck Neck exam: Present: normal inspection - Respiratory Respiratory exam: Present: normal lung sounds bilaterally. Absent: respiratory distress - Cardiovascular Cardiovascular Exam: Present: regular rate, normal rhythm. Absent: systolic murmur, diastolic murmur, rubs, gallop - GI/Abdominal GI/Abdominal exam: Present: soft, tenderness (suprapubic), normal bowel sounds - Extremities Exam Extremities exam: Present: normal inspection - Back Exam Back exam: Present: normal inspection - Neurological Exam Neurological exam: Present: alert, oriented X3, normal gait - Psychiatric Psychiatric exam: Present: normal affect, normal mood - Skin Skin exam: Present: warm, dry, intact, normal color. Absent: rash ED Course Vital Signs 06/03/19 19:10 Temperature 98.4 F Pulse Rate 101 H Respiratory 18 Rate Blood Pressure 110/65 O2 Sat by Pulse 100 Oximetry ED Medical Decision Making - Medical Decision Making 18 y o f presents with low pelvis and back pain x 3 days. Patient denies any vaginal bleeding vaginal discharge. She sexually active. Has no known drug allergies currently takes no medications on a daily basis and has no past medical history. Patient be placed on Macrobid 100 mg by mouth twice a day 10 days. Increase encourage patient to void after intercourse and to drink plenty of fluids. Critical care attestation.: If time is entered above; I have spent that time in minutes in the direct care of this critically ill patient, excluding procedure time. ED Disposition Clinical Impression: UTI (urinary tract infection) Disposition: DC-01 TO HOME OR SELFCARE Is pt being admited?: No Does the pt Need Aspirin: No Condition: Stable Instructions: Abdominal Pain (ED), Urinary Tract Infection in Women (ED) Prescriptions: Nitrofurantoin [place]/M-Cryst [Macrobid CAP] 100 mg PO Q12HR #20 capsule Referrals: PRIMARY CARE, [Primary Care Provider] - 3-5 Days Forms: Work/School Release Form(ED)
[2019-06-04 00:20] VITALS: BP 115/62
== END 2019-06-03 22:55 | disposition home or self-care (01) ==
LOC: ED 19:02
DX: N39.0 Urinary tract infection, site not specified (principal); G43.909 Migraine, unspecified, not intractable, without status migrainosus; F17.200 Nicotine dependence, unspecified, uncomplicated; F12.10 Cannabis abuse, uncomplicated
CPT/HCPCS: 81001; 81025

== ENCOUNTER 2019-06-28 03:36 | Emergency (ER) | payer SELFPAY ==
[2019-06-28 04:44] LABS: Hematocrit 38.1 % (30.3-42.9); Hemoglobin 12.4 gm/dl (10.1-14.3); Mean Corpuscular HGB Conc 33 % (30-34); Mean Corpuscular Volume 80 fl (79-97); Platelet Count 258 K/mm3 (140-440); Red Blood Count 4.78 M/mm3 (3.65-5.03); Red Cell Distribution Width 17.8 % (13.2-15.2)
[2019-06-28 05:11] LABS: Alanine Aminotransferase 23 units/L (7-56); Albumin 4.7 g/dL (3.9-5); BUN/Creatinine Ratio 11; Blood Urea Nitrogen 8 mg/dL (7-17); Calcium 9.6 mg/dL (8.4-10.2); Hemolysis Index 0
[2019-06-28 05:51] LABS: Basophils % (Manual) 0 % (0.0-1.8); Eosinophils % (Manual) 0 % (0.0-4.3); Platelet Estimate Consistent w Auto; Target Cells Few; Total Cells Counted 100
== END 2019-06-28 06:45 | disposition left against medical advice (07) ==
LOC: ED 03:36
DX: R10.9 Unspecified abdominal pain (principal); Z53.21 Procedure and treatment not carried out due to patient leaving prior to being seen by health care provider
CPT/HCPCS: 36415; 80053; 84703; 85007; 85025

== ENCOUNTER 2019-08-29 19:25 | Emergency (ER) | payer OTHER ==
[2019-08-29 19:48] VITALS: BP 111/73
--- NOTE | 2019-08-29 20:21 | Emergency Department Report ---
Blank Doc - Documentation Documentation: 18-year-old female that presents with a new onset of headache. Denies similar headache. Denies any trauma or injuries. Denies neck pain. This initial assessment/diagnostic orders/clinical plan/treatment(s) is/are subject to change based on patient's health status, clinical progression and re- assessment by fellow clinical providers in the ED. Further treatment and workup at subsequent clinical providers discretion. Patient/guardians urged not to elope from the ED as their condition may be serious if not clinically assessed and managed. Initial orders include: 1- Patient sent to [facility] for further evaluation and treatment 2- CT head 3- UA
[2019-08-29] MEDS ORDERED: oxyCODONE /ACETAMINOPHEN 5-325MG TAB PO STA (20:49)
--- NOTE | 2019-08-29 21:00 | Emergency Department Report ---
ED Head Trauma HPI - General Chief complaint: Headache Stated complaint: ROGERS/MIGRAINE Time Seen by Provider: 08/29/19 20:21 Source: patient Mode of arrival: Ambulatory Limitations: No Limitations - History of Present Illness Initial comments: 18-year-old F [place] female was walking outside towards her trunk when she leaned over to place night in a truck and struck her forehead on the corner of the trunk resulting in a laceration to the head and and bleeding and a dull throbbing headache that has been present since the onset. She reports no loss of consciousness, no vomiting, no visual changes but reports a dull throbbing headache that achieved temporary relief with ibuprofen/Goody powder. She reports no neck pain, no hemoptysis no hematemesis no palpitations no tinnitus no dizziness MD Complaint: head injury, head pain -: Sudden Location: frontal Place: home Radiation: none Severity: mild, moderate Consistency: constant Other Injuries: laceration (Laceration site healed) - Related Data Previous Rx's Medication Instructions Recorded Last Taken Type Ibuprofen [Motrin 400 MG tab] 400 mg PO Q8H PRN #30 tablet 05/19/14 Unknown Rx Ondansetron [Zofran] 4 mg PO Q6HR PRN #12 tablet 05/19/14 Unknown Rx Ibuprofen [Motrin] 600 mg PO Q8H PRN #15 tablet 05/14/16 Unknown Rx Ondansetron [Zofran Odt] 4 mg PO Q8HR #15 tab.rapdis 05/14/16 Unknown Rx Amoxicillin [Amoxicillin 400 MG/5 800 mg PO BID #140 ml 09/21/16 Unknown Rx ML] Ibuprofen Oral Liqd [Motrin] 400 mg PO TID PRN #120 ml 09/21/16 Unknown Rx Prednisolone Sod Phosphate 10 mg PO QDAY #5 tab.rapdis 09/21/16 Unknown Rx [Orapred Odt] Ondansetron [Zofran ODT TAB] 4 mg PO Q8H PRN #15 tab.rapdis 09/28/17 Unknown Rx Phenazopyridine [Pyridium] 100 mg PO Q8H PRN #9 tab 09/28/17 Unknown Rx Sulfamethoxazole/Trimethoprim 1 each PO BID 10 Days #20 tablet 09/28/17 Unknown Rx [Bactrim DS TAB] Cetirizine HCl [ZyrTEC] 10 mg PO QDAY 14 Days #14 capsule 11/09/17 Unknown Rx Fluticasone [Flonase] 1 spray NS QDAY 14 Days #1 bottle 11/09/17 Unknown Rx Ibuprofen [Motrin] 600 mg PO Q8H PRN #12 tablet 11/09/17 Unknown Rx DOXYCYCLINE Hyclate [Vibramycin 100 mg PO Q12HR 14 Days #28 capsule 05/23/18 Unknown Rx CAP] Dicyclomine [Bentyl] 20 mg PO QID PRN #20 tablet 05/23/18 Unknown Rx Ondansetron [Zofran Odt] 4 mg PO Q8HR PRN #20 tab.rapdis 05/23/18 Unknown Rx traMADoL [Ultram] 50 mg PO Q6HR PRN #7 tablet 05/23/18 Unknown Rx Ibuprofen [Motrin] 600 mg PO Q8H PRN #20 tablet 08/24/18 Unknown Rx Ondansetron [Zofran Odt] 4 mg PO Q8HR PRN #20 tab.rapdis 08/24/18 Unknown Rx Butalb/Acetamin/Caff 50-325-40 1 - 2 each PO Q4H PRN #15 tablet 01/12/19 Unknown Rx [Fioricet 50-325-40] Ketorolac [Toradol] 10 mg PO Q8H PRN #20 tablet 01/12/19 Unknown Rx Promethazine [Phenergan] 25 mg PO Q6HR PRN #24 tab 01/12/19 Unknown Rx Albuterol INH(or & Nicu Only) 2 puff IH QID PRN #1 inhalation 01/31/19 Unknown Rx [ProAir HFA Inhaler] Azithromycin [Zithromax Z-WALI] 250 mg PO DAILY #6 tablet 01/31/19 Unknown Rx Benzonatate [Tessalon Perles] 100 mg PO Q8HR PRN #30 capsule 01/31/19 Unknown Rx Ibuprofen [Motrin 800 MG tab] 800 mg PO Q8HR PRN #30 tablet 01/31/19 Unknown Rx predniSONE [Deltasone] 40 mg PO QDAY 5 Days #10 tab 01/31/19 Unknown Rx Nitrofurantoin [place]/M-Cryst 100 mg PO Q12HR #20 capsule 06/03/19 Unknown Rx [Macrobid CAP] Butalb/Acetaminophen/Caffeine 1 cap PO Q6HR PRN #20 cap 08/29/19 Unknown Rx [Fioricet 50-300-40 mg CAP] traMADoL [Ultram] 50 mg PO Q4HR PRN #10 tablet 08/29/19 Unknown Rx Allergies/Adverse reactions: Allergies Allergy/AdvReac Type Severity Reaction Status Date / Time No Known Allergies Allergy Verified 10/21/18 08:09 ED Review of Systems ROS: Stated complaint: ROGERS/MIGRAINE Other details as noted in HPI Comment: All other systems reviewed and negative ED Past Medical Hx - Past Medical History Hx Headaches / Migraines: No Additional medical history: ovaria cysts. exposure to black mold for over 3 months. - Social History Smoking Status: Current Every Day Smoker Substance Use Type: Alcohol, Marijuana - Medications Home Medications: Home Medications Medication Instructions Recorded Confirmed Last Taken Type Ibuprofen [Motrin 400 MG tab] 400 mg PO Q8H PRN #30 tablet 05/19/14 Unknown Rx Ondansetron [Zofran] 4 mg PO Q6HR PRN #12 tablet 05/19/14 Unknown Rx Ibuprofen [Motrin] 600 mg PO Q8H PRN #15 tablet 05/14/16 Unknown Rx Ondansetron [Zofran Odt] 4 mg PO Q8HR #15 tab.rapdis 05/14/16 Unknown Rx Amoxicillin [Amoxicillin 400 MG/5 800 mg PO BID #140 ml 09/21/16 Unknown Rx ML] Ibuprofen Oral Liqd [Motrin] 400 mg PO TID PRN #120 ml 09/21/16 Unknown Rx Prednisolone Sod Phosphate 10 mg PO QDAY #5 tab.rapdis 09/21/16 Unknown Rx [Orapred Odt] Ondansetron [Zofran ODT TAB] 4 mg PO Q8H PRN #15 tab.rapdis 09/28/17 Unknown Rx Phenazopyridine [Pyridium] 100 mg PO Q8H PRN #9 tab 09/28/17 Unknown Rx Sulfamethoxazole/Trimethoprim 1 each PO BID 10 Days #20 tablet 09/28/17 Unknown Rx [Bactrim DS TAB] Cetirizine HCl [ZyrTEC] 10 mg PO QDAY 14 Days #14 capsule 11/09/17 Unknown Rx Fluticasone [Flonase] 1 spray NS QDAY 14 Days #1 bottle 11/09/17 Unknown Rx Ibuprofen [Motrin] 600 mg PO Q8H PRN #12 tablet 11/09/17 Unknown Rx DOXYCYCLINE Hyclate [Vibramycin 100 mg PO Q12HR 14 Days #28 capsule 05/23/18 Unknown Rx CAP] Dicyclomine [Bentyl] 20 mg PO QID PRN #20 tablet 05/23/18 Unknown Rx Ondansetron [Zofran Odt] 4 mg PO Q8HR PRN #20 tab.rapdis 05/23/18 Unknown Rx traMADoL [Ultram] 50 mg PO Q6HR PRN #7 tablet 05/23/18 Unknown Rx Ibuprofen [Motrin] 600 mg PO Q8H PRN #20 tablet 08/24/18 Unknown Rx Ondansetron [Zofran Odt] 4 mg PO Q8HR PRN #20 tab.rapdis 08/24/18 Unknown Rx Butalb/Acetamin/Caff 50-325-40 1 - 2 each PO Q4H PRN #15 tablet 01/12/19 Unknown Rx [Fioricet 50-325-40] Ketorolac [Toradol] 10 mg PO Q8H PRN #20 tablet 01/12/19 Unknown Rx Promethazine [Phenergan] 25 mg PO Q6HR PRN #24 tab 01/12/19 Unknown Rx Albuterol INH(or & Nicu Only) 2 puff IH QID PRN #1 inhalation 01/31/19 Unknown Rx [ProAir HFA Inhaler] Azithromycin [Zithromax Z-WALI] 250 mg PO DAILY #6 tablet 01/31/19 Unknown Rx Benzonatate [Tessalon Perles] 100 mg PO Q8HR PRN #30 capsule 01/31/19 Unknown Rx Ibuprofen [Motrin 800 MG tab] 800 mg PO Q8HR PRN #30 tablet 01/31/19 Unknown Rx predniSONE [Deltasone] 40 mg PO QDAY 5 Days #10 tab 01/31/19 Unknown Rx Nitrofurantoin [place]/M-Cryst 100 mg PO Q12HR #20 capsule 06/03/19 Unknown Rx [Macrobid CAP] Butalb/Acetaminophen/Caffeine 1 cap PO Q6HR PRN #20 cap 08/29/19 Unknown Rx [Fioricet 50-300-40 mg CAP] traMADoL [Ultram] 50 mg PO Q4HR PRN #10 tablet 08/29/19 Unknown Rx ED Physical Exam - General Limitations: No Limitations General appearance: alert, in no apparent distress - Head Head exam: Present: normocephalic - Expanded Head Exam Expanded 1 - Healed laceration tenderness to palpation. - Eye Eye exam: Present: normal appearance, PERRL, EOMI - ENT ENT exam: Present: mucous membranes moist - Neck Neck exam: Present: normal inspection - Respiratory Respiratory exam: Present: normal lung sounds bilaterally. Absent: respiratory distress - Cardiovascular Cardiovascular Exam: Present: regular rate, normal rhythm. Absent: systolic murmur, diastolic murmur, rubs, gallop - GI/Abdominal GI/Abdominal exam: Present: soft, normal bowel sounds - Extremities Exam Extremities exam: Present: normal inspection - Back Exam Back exam: Present: normal inspection - Neurological Exam Neurological exam: Present: alert, oriented X3, CN II-XII intact, normal gait (Romberg also negative), reflexes normal, other (No ataxia gait coordination is move speech is appropriate good memory recall). Absent: altered, abnormal gait, motor sensory deficit - Psychiatric Psychiatric exam: Present: normal affect, normal mood. Absent: anxious, flat affect - Skin Skin exam: Present: warm, dry, intact, normal color. Absent: rash ED Course Vital Signs 08/29/19 19:34 Temperature 98.2 F Pulse Rate 72 Respiratory 18 Rate Blood Pressure 111/73 O2 Sat by Pulse 100 Oximetry Critical care attestation.: If time is entered above; I have spent that time in minutes in the direct care of this critically ill patient, excluding procedure time. ED Disposition Clinical Impression: Head contusion, Cephalgia, Concussion Disposition: DC- TO HOME OR SELFCARE Is pt being admited?: No Does the pt Need Aspirin: No Condition: Stable Instructions: Post Concussion Syndrome (ED), Minor Head Injury (ED) Prescriptions: Butalb/Acetaminophen/Caffeine [Fioricet 50-300-40 mg CAP] 1 cap PO Q6HR PRN #20 cap PRN Reason: Headache traMADoL [Ultram] 50 mg PO Q4HR PRN #10 tablet PRN Reason: Pain Referrals: PRIMARY CARE, [Primary Care Provider] - 3-5 Days [facility] [Provider Group] - 3-5 Days
--- NOTE | 2019-08-29 21:56 | Cat Scan Report ---
NONENHANCED CT SCAN OF THE HEAD: INDICATION / CLINICAL INFORMATION: 18 years Female; headache. TECHNIQUE: Routine CT head without contrast. All CT scans at this location are performed using CT dos e reduction for ALARA by means of automated exposure control. COMPARISON: None. FINDINGS: BRAIN / INTRACRANIAL CONTENTS: No acute hemorrhage, mass effect, midline shift, hydrocephalus, or ac cherokee, large territorial infarct. No chronic infarct or focal atrophy. Normal brain volume and ventricu lar/sulcal size for age. No significant white matter abnormality. CRANIOCERVICAL JUNCTION: No significant abnormality. ORBITS: No significant abnormality of visualized orbits. SINUSES / MASTOIDS: No significant abnormality of the visualized paranasal sinuses or mastoid air naheed ls. ADDITIONAL FINDINGS: None. IMPRESSION: Normal nonenhanced CT scan of the brain. Signer Name: Jefry Draper MD Signed: 08/29/2019 9:51 PM Workstation Name: [id number]
== END 2019-08-29 22:05 | disposition home or self-care (01) ==
LOC: ED 19:25
DX: S06.0X9A Concussion with loss of consciousness of unspecified duration, initial encounter (principal); S00.83XA Contusion of other part of head, initial encounter; F17.200 Nicotine dependence, unspecified, uncomplicated; F12.10 Cannabis abuse, uncomplicated; Z79.899 Other long term (current) drug therapy; X58.XXXA Exposure to other specified factors, initial encounter; Y93.89 Activity, other specified; Y92.89 Other specified places as the place of occurrence of the external cause; Y99.8 Other external cause status
CPT/HCPCS: 70450

== ENCOUNTER 2019-09-06 09:51 | Emergency (ER) | payer OTHER ==
[2019-09-06 10:02] VITALS: BP 120/82
--- NOTE | 2019-09-06 11:37 | Emergency Department Report ---
ED ENT HPI - General Chief complaint: Dental/Oral Stated complaint: TOOTHACHE Time Seen by Provider: 09/06/19 11:32 Source: patient Mode of arrival: Ambulatory Limitations: No Limitations - History of Present Illness Initial comments: This is a 19-year-old female nontoxic well in appearance with no signs of distress presents to the ED with complaint of toothache. Patient denies any facial swelling. Denies following up with a dentist. Denies any fever, chills, headache, nausea, vomiting, chest pain or SOB. Denies any other complaints. Denies any allergies. MD complaint: tooth pain -: week(s) Location: tooth # 1 - pain here Severity: mild Severity scale (0 -10): 8 Quality: aching Consistency: constant Improves with: none Worsens with: none Context- Dental: history of dental caries, poor dental care Associated Symptoms: gum swelling, toothache. denies: fever, cough, pain with swallowing, sore throat, tinnitus, hearing loss, discharge from ear, rhinorrhea - Related Data Previous Rx's Medication Instructions Recorded Last Taken Type Ibuprofen [Motrin 400 MG tab] 400 mg PO Q8H PRN #30 tablet 05/19/14 Unknown Rx Ondansetron [Zofran] 4 mg PO Q6HR PRN #12 tablet 05/19/14 Unknown Rx Ibuprofen [Motrin] 600 mg PO Q8H PRN #15 tablet 05/14/16 Unknown Rx Ondansetron [Zofran Odt] 4 mg PO Q8HR #15 tab.rapdis 05/14/16 Unknown Rx Amoxicillin [Amoxicillin 400 MG/5 800 mg PO BID #140 ml 09/21/16 Unknown Rx ML] Ibuprofen Oral Liqd [Motrin] 400 mg PO TID PRN #120 ml 09/21/16 Unknown Rx Prednisolone Sod Phosphate 10 mg PO QDAY #5 tab.rapdis 09/21/16 Unknown Rx [Orapred Odt] Ondansetron [Zofran ODT TAB] 4 mg PO Q8H PRN #15 tab.rapdis 09/28/17 Unknown Rx Phenazopyridine [Pyridium] 100 mg PO Q8H PRN #9 tab 09/28/17 Unknown Rx Sulfamethoxazole/Trimethoprim 1 each PO BID 10 Days #20 tablet 09/28/17 Unknown Rx [Bactrim DS TAB] Cetirizine HCl [ZyrTEC] 10 mg PO QDAY 14 Days #14 capsule 11/09/17 Unknown Rx Fluticasone [Flonase] 1 spray NS QDAY 14 Days #1 bottle 11/09/17 Unknown Rx Ibuprofen [Motrin] 600 mg PO Q8H PRN #12 tablet 11/09/17 Unknown Rx DOXYCYCLINE Hyclate [Vibramycin 100 mg PO Q12HR 14 Days #28 capsule 05/23/18 Unknown Rx CAP] Dicyclomine [Bentyl] 20 mg PO QID PRN #20 tablet 05/23/18 Unknown Rx Ondansetron [Zofran Odt] 4 mg PO Q8HR PRN #20 tab.rapdis 05/23/18 Unknown Rx traMADoL [Ultram] 50 mg PO Q6HR PRN #7 tablet 05/23/18 Unknown Rx Ibuprofen [Motrin] 600 mg PO Q8H PRN #20 tablet 08/24/18 Unknown Rx Ondansetron [Zofran Odt] 4 mg PO Q8HR PRN #20 tab.rapdis 08/24/18 Unknown Rx Butalb/Acetamin/Caff 50-325-40 1 - 2 each PO Q4H PRN #15 tablet 01/12/19 Unknown Rx [Fioricet 50-325-40] Ketorolac [Toradol] 10 mg PO Q8H PRN #20 tablet 01/12/19 Unknown Rx Promethazine [Phenergan] 25 mg PO Q6HR PRN #24 tab 01/12/19 Unknown Rx Albuterol INH(or & Nicu Only) 2 puff IH QID PRN #1 inhalation 01/31/19 Unknown Rx [ProAir HFA Inhaler] Azithromycin [Zithromax Z-WALI] 250 mg PO DAILY #6 tablet 01/31/19 Unknown Rx Benzonatate [Tessalon Perles] 100 mg PO Q8HR PRN #30 capsule 01/31/19 Unknown Rx Ibuprofen [Motrin 800 MG tab] 800 mg PO Q8HR PRN #30 tablet 01/31/19 Unknown Rx predniSONE [Deltasone] 40 mg PO QDAY 5 Days #10 tab 01/31/19 Unknown Rx Nitrofurantoin [place]/M-Cryst 100 mg PO Q12HR #20 capsule 06/03/19 Unknown Rx [Macrobid CAP] Butalb/Acetaminophen/Caffeine 1 cap PO Q6HR PRN #20 cap 08/29/19 Unknown Rx [Fioricet 50-300-40 mg CAP] traMADoL [Ultram] 50 mg PO Q4HR PRN #10 tablet 08/29/19 Unknown Rx Acetaminophen/Codeine [Tylenol 1 tab PO Q6H PRN #12 tab 09/06/19 Unknown Rx /Codeine # 3 tab] Amoxicillin/K Clav Tab [Augmentin 1 tab PO Q12HR #20 tab 09/06/19 Unknown Rx 875 mg] Chlorhexidine Mouthwash [Peridex] 15 ml MM BID #1 bottle 09/06/19 Unknown Rx Allergies Allergy/AdvReac Type Severity Reaction Status Date / Time No Known Allergies Allergy Verified 10/21/18 08:09 ED Dental HPI - General Chief complaint: Dental/Oral Stated complaint: TOOTHACHE Time Seen by Provider: 09/06/19 11:32 Source: patient Mode of arrival: Ambulatory Limitations: No Limitations - Related Data Previous Rx's Medication Instructions Recorded Last Taken Type Ibuprofen [Motrin 400 MG tab] 400 mg PO Q8H PRN #30 tablet 05/19/14 Unknown Rx Ondansetron [Zofran] 4 mg PO Q6HR PRN #12 tablet 05/19/14 Unknown Rx Ibuprofen [Motrin] 600 mg PO Q8H PRN #15 tablet 05/14/16 Unknown Rx Ondansetron [Zofran Odt] 4 mg PO Q8HR #15 tab.rapdis 05/14/16 Unknown Rx Amoxicillin [Amoxicillin 400 MG/5 800 mg PO BID #140 ml 09/21/16 Unknown Rx ML] Ibuprofen Oral Liqd [Motrin] 400 mg PO TID PRN #120 ml 09/21/16 Unknown Rx Prednisolone Sod Phosphate 10 mg PO QDAY #5 tab.rapdis 09/21/16 Unknown Rx [Orapred Odt] Ondansetron [Zofran ODT TAB] 4 mg PO Q8H PRN #15 tab.rapdis 09/28/17 Unknown Rx Phenazopyridine [Pyridium] 100 mg PO Q8H PRN #9 tab 09/28/17 Unknown Rx Sulfamethoxazole/Trimethoprim 1 each PO BID 10 Days #20 tablet 09/28/17 Unknown Rx [Bactrim DS TAB] Cetirizine HCl [ZyrTEC] 10 mg PO QDAY 14 Days #14 capsule 11/09/17 Unknown Rx Fluticasone [Flonase] 1 spray NS QDAY 14 Days #1 bottle 11/09/17 Unknown Rx Ibuprofen [Motrin] 600 mg PO Q8H PRN #12 tablet 11/09/17 Unknown Rx DOXYCYCLINE Hyclate [Vibramycin 100 mg PO Q12HR 14 Days #28 capsule 05/23/18 Unknown Rx CAP] Dicyclomine [Bentyl] 20 mg PO QID PRN #20 tablet 05/23/18 Unknown Rx Ondansetron [Zofran Odt] 4 mg PO Q8HR PRN #20 tab.rapdis 05/23/18 Unknown Rx traMADoL [Ultram] 50 mg PO Q6HR PRN #7 tablet 05/23/18 Unknown Rx Ibuprofen [Motrin] 600 mg PO Q8H PRN #20 tablet 08/24/18 Unknown Rx Ondansetron [Zofran Odt] 4 mg PO Q8HR PRN #20 tab.rapdis 08/24/18 Unknown Rx Butalb/Acetamin/Caff 50-325-40 1 - 2 each PO Q4H PRN #15 tablet 01/12/19 Unknown Rx [Fioricet 50-325-40] Ketorolac [Toradol] 10 mg PO Q8H PRN #20 tablet 01/12/19 Unknown Rx Promethazine [Phenergan] 25 mg PO Q6HR PRN #24 tab 01/12/19 Unknown Rx Albuterol INH(or & Nicu Only) 2 puff IH QID PRN #1 inhalation 01/31/19 Unknown Rx [ProAir HFA Inhaler] Azithromycin [Zithromax Z-WALI] 250 mg PO DAILY #6 tablet 01/31/19 Unknown Rx Benzonatate [Tessalon Perles] 100 mg PO Q8HR PRN #30 capsule 01/31/19 Unknown Rx Ibuprofen [Motrin 800 MG tab] 800 mg PO Q8HR PRN #30 tablet 01/31/19 Unknown Rx predniSONE [Deltasone] 40 mg PO QDAY 5 Days #10 tab 01/31/19 Unknown Rx Nitrofurantoin [place]/M-Cryst 100 mg PO Q12HR #20 capsule 06/03/19 Unknown Rx [Macrobid CAP] Butalb/Acetaminophen/Caffeine 1 cap PO Q6HR PRN #20 cap 08/29/19 Unknown Rx [Fioricet 50-300-40 mg CAP] traMADoL [Ultram] 50 mg PO Q4HR PRN #10 tablet 08/29/19 Unknown Rx Acetaminophen/Codeine [Tylenol 1 tab PO Q6H PRN #12 tab 09/06/19 Unknown Rx /Codeine # 3 tab] Amoxicillin/K Clav Tab [Augmentin 1 tab PO Q12HR #20 tab 09/06/19 Unknown Rx 875 mg] Chlorhexidine Mouthwash [Peridex] 15 ml MM BID #1 bottle 09/06/19 Unknown Rx Allergies Allergy/AdvReac Type Severity Reaction Status Date / Time No Known Allergies Allergy Verified 10/21/18 08:09 ED Review of Systems ROS: Stated complaint: TOOTHACHE Other details as noted in HPI Constitutional: denies: chills, fever Eyes: denies: eye pain, eye discharge, vision change ENT: dental pain. denies: ear pain, throat pain Respiratory: denies: cough, shortness of breath, wheezing Cardiovascular: denies: chest pain, palpitations Endocrine: no symptoms reported Gastrointestinal: denies: abdominal pain, nausea, diarrhea Genitourinary: denies: urgency, dysuria, discharge Musculoskeletal: denies: back pain, joint swelling, arthralgia Skin: denies: rash, lesions Neurological: denies: headache, weakness, paresthesias Psychiatric: denies: anxiety, depression Hematological/Lymphatic: denies: easy bleeding, easy bruising ED Past Medical Hx - Past Medical History Previous Medical History?: Yes Hx Headaches / Migraines: No Additional medical history: ovaria cysts. exposure to black mold for over 3 months. - Surgical History Past Surgical History?: No - Social History Smoking Status: Current Every Day Smoker - Medications Home Medications: Home Medications Medication Instructions Recorded Confirmed Last Taken Type Ibuprofen [Motrin 400 MG tab] 400 mg PO Q8H PRN #30 tablet 05/19/14 Unknown Rx Ondansetron [Zofran] 4 mg PO Q6HR PRN #12 tablet 05/19/14 Unknown Rx Ibuprofen [Motrin] 600 mg PO Q8H PRN #15 tablet 05/14/16 Unknown Rx Ondansetron [Zofran Odt] 4 mg PO Q8HR #15 tab.rapdis 05/14/16 Unknown Rx Amoxicillin [Amoxicillin 400 MG/5 800 mg PO BID #140 ml 09/21/16 Unknown Rx ML] Ibuprofen Oral Liqd [Motrin] 400 mg PO TID PRN #120 ml 09/21/16 Unknown Rx Prednisolone Sod Phosphate 10 mg PO QDAY #5 tab.rapdis 09/21/16 Unknown Rx [Orapred Odt] Ondansetron [Zofran ODT TAB] 4 mg PO Q8H PRN #15 tab.rapdis 09/28/17 Unknown Rx Phenazopyridine [Pyridium] 100 mg PO Q8H PRN #9 tab 09/28/17 Unknown Rx Sulfamethoxazole/Trimethoprim 1 each PO BID 10 Days #20 tablet 09/28/17 Unknown Rx [Bactrim DS TAB] Cetirizine HCl [ZyrTEC] 10 mg PO QDAY 14 Days #14 capsule 11/09/17 Unknown Rx Fluticasone [Flonase] 1 spray NS QDAY 14 Days #1 bottle 11/09/17 Unknown Rx Ibuprofen [Motrin] 600 mg PO Q8H PRN #12 tablet 11/09/17 Unknown Rx DOXYCYCLINE Hyclate [Vibramycin 100 mg PO Q12HR 14 Days #28 capsule 05/23/18 Unknown Rx CAP] Dicyclomine [Bentyl] 20 mg PO QID PRN #20 tablet 05/23/18 Unknown Rx Ondansetron [Zofran Odt] 4 mg PO Q8HR PRN #20 tab.rapdis 05/23/18 Unknown Rx traMADoL [Ultram] 50 mg PO Q6HR PRN #7 tablet 05/23/18 Unknown Rx Ibuprofen [Motrin] 600 mg PO Q8H PRN #20 tablet 08/24/18 Unknown Rx Ondansetron [Zofran Odt] 4 mg PO Q8HR PRN #20 tab.rapdis 08/24/18 Unknown Rx Butalb/Acetamin/Caff 50-325-40 1 - 2 each PO Q4H PRN #15 tablet 08/01/19 U nknown Rx [Fioricet 50-325-40] Ketorolac [Toradol] 10 mg PO Q8H PRN #20 tablet 01/12/19 Unknown Rx Promethazine [Phenergan] 25 mg PO Q6HR PRN #24 tab 01/12/19 Unknown Rx Albuterol INH(or & Nicu Only) 2 puff IH QID PRN #1 inhalation 01/31/19 Unknown Rx [ProAir HFA Inhaler] Azithromycin [Zithromax Z-WALI] 250 mg PO DAILY #6 tablet 01/31/19 Unknown Rx Benzonatate [Tessalon Perles] 100 mg PO Q8HR PRN #30 capsule 01/31/19 Unknown Rx Ibuprofen [Motrin 800 MG tab] 800 mg PO Q8HR PRN #30 tablet 01/31/19 Unknown Rx predniSONE [Deltasone] 40 mg PO QDAY 5 Days #10 tab 01/31/19 Unknown Rx Nitrofurantoin [place]/M-Cryst 100 mg PO Q12HR #20 capsule 06/03/19 Unknown Rx [Macrobid CAP] Butalb/Acetaminophen/Caffeine 1 cap PO Q6HR PRN #20 cap 08/29/19 Unknown Rx [Fioricet 50-300-40 mg CAP] traMADoL [Ultram] 50 mg PO Q4HR PRN #10 tablet 08/29/19 Unknown Rx Acetaminophen/Codeine [Tylenol 1 tab PO Q6H PRN #12 tab 09/06/19 Unknown Rx /Codeine # 3 tab] Amoxicillin/K Clav Tab [Augmentin 1 tab PO Q12HR #20 tab 09/06/19 Unknown Rx 875 mg] Chlorhexidine Mouthwash [Peridex] 15 ml MM BID #1 bottle 09/06/19 Unknown Rx ED Physical Exam - General Limitations: No Limitations General appearance: alert, in no apparent distress - Head Head exam: Present: atraumatic, normocephalic - Expanded ENT Exam Expanded Ear exam: Present: normal external inspection Mouth exam: Present: normal external inspection. Absent: drooling, trismus, muffled voice Teeth exam: Present: dental caries, fractured tooth #, dental tenderness #, gingival enlargement, other (uvula midline. no swelling) Throat exam: Positive: normal inspection. Negative: tonsillar erythema, tonsillomegaly, tonsillar exudate, R peritonsillar mass, L peritonsillar mass - Neck Neck exam: Present: normal inspection, full ROM. Absent: tenderness, meningismus, lymphadenopathy, thyromegaly - Extremities Exam Extremities exam: Present: normal inspection, full ROM - Back Exam Back exam: Present: normal inspection, full ROM - Neurological Exam Neurological exam: Present: alert, oriented X3, normal gait - Psychiatric Psychiatric exam: Present: normal affect, normal mood - Skin Skin exam: Present: warm, dry, intact, normal color. Absent: rash ED Course Vital Signs 09/06/19 09:53 Temperature 98.7 F Pulse Rate 74 Respiratory 18 Rate Blood Pressure 120/82 [Right] O2 Sat by Pulse 100 Oximetry - Reevaluation(s) Reevaluation #1: 09/06/19 11:34 Patient is speaking in full sentences with no signs of distress noted. ED Medical Decision Making - Medical Decision Making Patient was instructed to Follow-up with a dentist doctor in 3-5 days or if symptoms worsen and continue return to emergency room as soon as possible. At time of discharge, the patient does not seem toxic or ill in appearance. No acute signs of distress noted. Patient agrees to discharge treatment plan of care. No further questions noted by the patient. Critical care attestation.: If time is entered above; I have spent that time in minutes in the direct care of this critically ill patient, excluding procedure time. ED Disposition Clinical Impression: Dental caries, Gingivitis Disposition: - TO HOME OR SELFCARE Is pt being admited?: No Does the pt Need Aspirin: No Condition: Stable Instructions: Dental Caries (ED), Gingivitis (ED), Acetaminophen/Codeine (By mouth) Additional Instructions: Follow-up with a dentist doctor in 3-5 days or if symptoms worsen and continue return to the emergency department as soon as possible. Prescriptions: Amoxicillin/K Clav Tab [Augmentin 875 mg] 1 tab PO Q12HR #20 tab Chlorhexidine Mouthwash [Peridex] 15 ml MM BID #1 bottle Acetaminophen/Codeine [Tylenol /Codeine # 3 tab] 1 tab PO Q6H PRN #12 tab PRN Reason: Pain , Severe (7-10) Referrals: KODY QUARLES MD [Primary Care Provider] - 3-5 Days PRIMARY CARE, [Referring] - 3-5 Days CARBUCCIA,YUE, MD [Staff Physician] - 3-5 Days [facility] [Provider Group] - 3-5 Days Forms: Work/School Release Form(ED)
== END 2019-09-06 13:29 | disposition home or self-care (01) ==
LOC: ED 09:51
DX: K02.9 Dental caries, unspecified (principal); K05.10 Chronic gingivitis, plaque induced; F17.200 Nicotine dependence, unspecified, uncomplicated; Z79.1 Long term (current) use of non-steroidal anti-inflammatories (NSAID); Z79.2 Long term (current) use of antibiotics; Z79.899 Other long term (current) drug therapy
CPT/HCPCS: 99282

== ENCOUNTER 2020-04-12 09:06 | Emergency (ER) | payer OTHER ==
[2020-04-12 09:14] VITALS: BP 114/80
[2020-04-12] MEDS ORDERED: IBUPROFEN 600 MG TAB PO ONE (10:28)
[2020-04-12] MEDS ORDERED: LIDOCAINE-MPF (1%) 10 MG/1 ML VIAL 5 ML INFILTRATI ONE (10:30)
--- NOTE | 2020-04-12 10:54 | Emergency Department Report ---
Abscess Boil HPI - HPI Chief Complaint: Skin/Abscess/Foreign Body Stated Complaint: VAGINAL BOIL/EXTREME PAIN Time Seen by Provider: 04/12/20 10:07 Duration: 4 Days History: No Fever, No Pain, No Purulent Drainage, No Numbness, No Foreign Body, No Previous History, No Insect Bite HPI: The patient was evaluated in the emergency department for symptoms described in the history of present illness. He/she was evaluated in the context of the global COVID-19 pandemic, which necessitated consideration that the patient might be at risk for infection with the virus that causes COVID-19. Institutional protocols and algorithms that pertain to the evaluation of patients at risk for COVID-19 are in a state of rapid change based on information released by regulatory bodies including the CDC and federal and state organizations. These policies and algorithms were followed during the patient's care in the emergency department. Please note that these policies, procedures and recommendations changed on a rapid basis. 19-year-old - [place] female presents to the emergency room 12 ball to the private area that is painful for the last 4 days. Patient states that she has been placing warm compresses which has now gotten larger. Patient denies any history of boils. Patient denies any fever chills no nausea no vomiting. She reports she starts her menses today Home Medications: Previous Rx's Medication Instructions Recorded Last Taken Type Ibuprofen [Motrin 400 MG tab] 400 mg PO Q8H PRN #30 tablet 05/19/14 Unknown Rx Ondansetron [Zofran] 4 mg PO Q6HR PRN #12 tablet 05/19/14 Unknown Rx Ibuprofen [Motrin] 600 mg PO Q8H PRN #15 tablet 05/14/16 Unknown Rx Ondansetron [Zofran Odt] 4 mg PO Q8HR #15 tab.rapdis 05/14/16 Unknown Rx Amoxicillin [Amoxicillin 400 MG/5 800 mg PO BID #140 ml 09/21/16 Unknown Rx ML] Ibuprofen Oral Liqd [Motrin] 400 mg PO TID PRN #120 ml 09/21/16 Unknown Rx Prednisolone Sod Phosphate 10 mg PO QDAY #5 tab.rapdis 09/21/16 Unknown Rx [Orapred Odt] Ondansetron [Zofran ODT TAB] 4 mg PO Q8H PRN #15 tab.rapdis 09/28/17 Unknown Rx Phenazopyridine [Pyridium] 100 mg PO Q8H PRN #9 tab 09/28/17 Unknown Rx Sulfamethoxazole/Trimethoprim 1 each PO BID 10 Days #20 tablet 09/28/17 Unknown Rx [Bactrim DS TAB] Cetirizine HCl [ZyrTEC] 10 mg PO QDAY 14 Days #14 capsule 11/09/17 Unknown Rx Fluticasone [Flonase] 1 spray NS QDAY 14 Days #1 bottle 11/09/17 Unknown Rx Ibuprofen [Motrin] 600 mg PO Q8H PRN #12 tablet 11/09/17 Unknown Rx DOXYCYCLINE Hyclate [Vibramycin 100 mg PO Q12HR 14 Days #28 capsule 05/23/18 Unknown Rx CAP] Dicyclomine [Bentyl] 20 mg PO QID PRN #20 tablet 05/23/18 Unknown Rx Ondansetron [Zofran Odt] 4 mg PO Q8HR PRN #20 tab.rapdis 05/23/18 Unknown Rx traMADoL [Ultram] 50 mg PO Q6HR PRN #7 tablet 05/23/18 Unknown Rx Ondansetron [Zofran Odt] 4 mg PO Q8HR PRN #20 tab.rapdis 08/24/18 Unknown Rx Butalb/Acetamin/Caff 50-325-40 1 - 2 each PO Q4H PRN #15 tablet 01/12/19 Unknown Rx [Fioricet 50-325-40] Ketorolac [Toradol] 10 mg PO Q8H PRN #20 tablet 01/12/19 Unknown Rx Promethazine [Phenergan] 25 mg PO Q6HR PRN #24 tab 01/12/19 Unknown Rx Albuterol Mdi (or & Nicu Only) 2 puff IH QID PRN #1 inhalation 01/31/19 Unknown Rx [ProAir HFA Inhaler] Azithromycin [Zithromax Z-WALI] 250 mg PO DAILY #6 tablet 01/31/19 Unknown Rx Benzonatate [Tessalon Perles] 100 mg PO Q8HR PRN #30 capsule 01/31/19 Unknown Rx Ibuprofen [Motrin 800 MG tab] 800 mg PO Q8HR PRN #30 tablet 01/31/19 Unknown Rx predniSONE [Deltasone] 40 mg PO QDAY 5 Days #10 tab 01/31/19 Unknown Rx Nitrofurantoin [place]/M-Cryst 100 mg PO Q12HR #20 capsule 06/03/19 Unknown Rx [Macrobid CAP] Butalb/Acetaminophen/Caffeine 1 cap PO Q6HR PRN #20 cap 08/29/19 Unknown Rx [Fioricet 50-300-40 mg CAP] traMADoL [Ultram] 50 mg PO Q4HR PRN #10 tablet 08/29/19 Unknown Rx Acetaminophen/Codeine [Tylenol 1 tab PO Q6H PRN #12 tab 09/06/19 Unknown Rx /Codeine # 3 tab] Amoxicillin/K Clav Tab [Augmentin 1 tab PO Q12HR #20 tab 09/06/19 Unknown Rx 875 mg] Chlorhexidine Mouthwash [Peridex] 15 ml MM BID #1 bottle 09/06/19 Unknown Rx Doxycycline Hyclate [Doxycycline 100 mg PO Q12HR 10 Days #20 tab 04/12/20 Unknown Rx Hyclate TAB] Ibuprofen [Motrin 600 MG tab] 600 mg PO Q8H PRN #20 tablet 04/12/20 Unknown Rx Allergies/Adverse Reactions: Allergies Allergy/AdvReac Type Severity Reaction Status Date / Time No Known Allergies Allergy Verified 10/21/18 08:09 ED Review of Systems ROS: Stated complaint: VAGINAL BOIL/EXTREME PAIN Other details as noted in HPI ED Past Medical Hx - Past Medical History Hx Headaches / Migraines: No Additional medical history: ovaria cysts. exposure to black mold for over 3 months. - Social History Smoking Status: Current Every Day Smoker Substance Use Type: Alcohol - Medications Home Medications: Home Medications Medication Instructions Recorded Confirmed Last Taken Type Ibuprofen [Motrin 400 MG tab] 400 mg PO Q8H PRN #30 tablet 05/19/14 Unknown Rx Ondansetron [Zofran] 4 mg PO Q6HR PRN #12 tablet 05/19/14 Unknown Rx Ibuprofen [Motrin] 600 mg PO Q8H PRN #15 tablet 05/14/16 Unknown Rx Ondansetron [Zofran Odt] 4 mg PO Q8HR #15 tab.rapdis 05/14/16 Unknown Rx Amoxicillin [Amoxicillin 400 MG/5 800 mg PO BID #140 ml 09/21/16 Unknown Rx ML] Ibuprofen Oral Liqd [Motrin] 400 mg PO TID PRN #120 ml 09/21/16 Unknown Rx Prednisolone Sod Phosphate 10 mg PO QDAY #5 tab.rapdis 09/21/16 Unknown Rx [Orapred Odt] Ondansetron [Zofran ODT TAB] 4 mg PO Q8H PRN #15 tab.rapdis 09/28/17 Unknown Rx Phenazopyridine [Pyridium] 100 mg PO Q8H PRN #9 tab 09/28/17 Unknown Rx Sulfamethoxazole/Trimethoprim 1 each PO BID 10 Days #20 tablet 09/28/17 Unknown Rx [Bactrim DS TAB] Cetirizine HCl [ZyrTEC] 10 mg PO QDAY 14 Days #14 capsule 11/09/17 Unknown Rx Fluticasone [Flonase] 1 spray NS QDAY 14 Days #1 bottle 11/09/17 Unknown Rx Ibuprofen [Motrin] 600 mg PO Q8H PRN #12 tablet 11/09/17 Unknown Rx DOXYCYCLINE Hyclate [Vibramycin 100 mg PO Q12HR 14 Days #28 capsule 05/23/18 Un known Rx CAP] Dicyclomine [Bentyl] 20 mg PO QID PRN #20 tablet 05/23/18 Unknown Rx Ondansetron [Zofran Odt] 4 mg PO Q8HR PRN #20 tab.rapdis 05/23/18 Unknown Rx traMADoL [Ultram] 50 mg PO Q6HR PRN #7 tablet 05/23/18 Unknown Rx Ondansetron [Zofran Odt] 4 mg PO Q8HR PRN #20 tab.rapdis 08/24/18 Unknown Rx Butalb/Acetamin/Caff 50-325-40 1 - 2 each PO Q4H PRN #15 tablet 01/12/19 Unk nown Rx [Fioricet 50-325-40] Ketorolac [Toradol] 10 mg PO Q8H PRN #20 tablet 01/12/19 Unknown Rx Promethazine [Phenergan] 25 mg PO Q6HR PRN #24 tab 01/12/19 Unknown Rx Albuterol Mdi (or & Nicu Only) 2 puff IH QID PRN #1 inhalation 01/31/19 Unknown Rx [ProAir HFA Inhaler] Azithromycin [Zithromax Z-WALI] 250 mg PO DAILY #6 tablet 01/31/19 Unknown Rx Benzonatate [Tessalon Perles] 100 mg PO Q8HR PRN #30 capsule 01/31/19 Unknown Rx Ibuprofen [Motrin 800 MG tab] 800 mg PO Q8HR PRN #30 tablet 01/31/19 Unknown Rx predniSONE [Deltasone] 40 mg PO QDAY 5 Days #10 tab 01/31/19 Unknown Rx Nitrofurantoin [place]/M-Cryst 100 mg PO Q12HR #20 capsule 06/03/19 Unknown Rx [Macrobid CAP] Butalb/Acetaminophen/Caffeine 1 cap PO Q6HR PRN #20 cap 08/29/19 Unknown Rx [Fioricet 50-300-40 mg CAP] traMADoL [Ultram] 50 mg PO Q4HR PRN #10 tablet 08/29/19 Unknown Rx Acetaminophen/Codeine [Tylenol 1 tab PO Q6H PRN #12 tab 09/06/19 Unknown Rx /Codeine # 3 tab] Amoxicillin/K Clav Tab [Augmentin 1 tab PO Q12HR #20 tab 09/06/19 Unknown Rx 875 mg] Chlorhexidine Mouthwash [Peridex] 15 ml MM BID #1 bottle 09/06/19 Unknown Rx Doxycycline Hyclate [Doxycycline 100 mg PO Q12HR 10 Days #20 tab 04/12/20 Unknown Rx Hyclate TAB] Ibuprofen [Motrin 600 MG tab] 600 mg PO Q8H PRN #20 tablet 04/12/20 Unknown Rx ED Abscess Boil Physical Exam - Exam General: Vital signs noted. No distress. Alert and acting appropriately. Size: 3 cm Exam: Yes Tenderness, Yes Fluctuance I & D Note - I & D Note I & D Note: DATE OF PROCEDURE: MM//YYY. PREOPERATIVE DIAGNOSES: 1.soft tissue infection. 2. soft tissue infection. POSTOPERATIVE DIAGNOSES: 1 right perineum..soft tissue infection. Infection appeared to be contained to subcutaneous tissue and there was no evidence of necrotizing soft tissue infection including myonecrosis. OPERATION PERFORMED: Incision and drainage of ..... soft tissue abscess. Provider: Adriana Hooper PA-C. ANESTHESIA: Local. DESCRIPTION OF PROCEDURE: The patient was prepped and draped. Seropurulent, somewhat bloody fluid was noted. The infection appeared contained to a golf ball-sized area in the subcutaneous tissues above the fascia. There was no evidence of myonecrosis, penetration of the fascia or significant extent along the fascia of the infection. We cleaned the area with Betadine and then packed the wound .......... Dry dressings were applied. The patient appeared to tolerate the procedure well. ED Course Vital Signs 04/12/20 09:11 Temperature 98.6 F Pulse Rate 107 H Respiratory 16 Rate Blood Pressure 114/80 O2 Sat by Pulse 100 Oximetry Critical care attestation.: If time is entered above; I have spent that time in minutes in the direct care of this critically ill patient, excluding procedure time. ED Medical Decision Making - Medical Decision Making 19-year-old -[place] female presents to the emergency room 12 ball to the private area that is painful for the last 4 days. Patient states that she has been placing warm compresses which has now gotten larger. Patient denies any history of boils. Patient denies any fever chills no nausea no vomiting. She reports she starts her menses today, Incision and drain was completed. Serosanguineous purulent discharge with foul odor has been expressed. Gauze placed between gluteal. Instructed patient to do warm Epson salt soaks. Take pain medicine such as ibuprofen or Tylenol. Continue with warm compresses will help. ED Disposition Clinical Impression: Abscess, perineum Disposition: DC-01 TO HOME OR SELFCARE Is pt being admited?: No Does the pt Need Aspirin: No Condition: Stable Instructions: Abscess (ED) Additional Instructions: Complete antibiotics as prescribed pain medication as needed. Continue to do warm Epson salt soaks or warm compresses until discharge is expressed out. Follow-up with your primary care provider for any further concerns. Prescriptions: Doxycycline Hyclate [Doxycycline Hyclate TAB] 100 mg PO Q12HR 10 Days #20 tab Ibuprofen [Motrin 600 MG tab] 600 mg PO Q8H PRN #20 tablet PRN Reason: Pain Referrals: PRIMARY CARE, [Primary Care Provider] - 3-5 Days [facility] [Provider Group] - 3-5 Days Forms: Work/School Release Form(ED)
[2020-04-12] MEDS ORDERED: diphenhydrAMINE 25 MG CAP PO ONE (10:55)
== END 2020-04-12 11:39 | disposition home or self-care (01) ==
LOC: ED 09:06
DX: L02.215 Cutaneous abscess of perineum (principal); F17.200 Nicotine dependence, unspecified, uncomplicated; Z79.1 Long term (current) use of non-steroidal anti-inflammatories (NSAID); Z79.2 Long term (current) use of antibiotics; Z79.899 Other long term (current) drug therapy
CPT/HCPCS: 99282

== ENCOUNTER 2020-05-03 07:10 | Emergency (ER) | payer OTHER | END 2020-05-03 08:10 | disposition left against medical advice (07) | LOC: ED 07:10 | DX: R42 Dizziness and giddiness (principal); R06.02 Shortness of breath; Z53.21 Procedure and treatment not carried out due to patient leaving prior to being seen by health care provider ==

== ENCOUNTER 2020-08-14 19:01 | Emergency (ER) | payer OTHER ==
[2020-08-14 19:25] VITALS: BP 116/72
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
== END 2020-08-14 21:12 | disposition home or self-care (01) ==
LOC: ED 19:01
DX: S16.1XXA Strain of muscle, fascia and tendon at neck level, initial encounter (principal); R07.89 Other chest pain; D64.9 Anemia, unspecified; Z79.899 Other long term (current) drug therapy; V87.7XXA Person injured in collision between other specified motor vehicles (traffic), initial encounter; Y92.410 Unspecified street and highway as the place of occurrence of the external cause; Y93.89 Activity, other specified; Y99.8 Other external cause status
CPT/HCPCS: 71046; 72040

== ENCOUNTER 2020-12-29 16:52 | Emergency (ER) | payer OTHER ==
[2020-12-29 17:51] VITALS: BP 91/61
[2020-12-29 19:05] LABS: HCG Qualitative,Urine Negative (Negative)
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
== END 2020-12-29 21:00 | disposition home or self-care (01) ==
LOC: ED 16:52
DX: S13.4XXA Sprain of ligaments of cervical spine, initial encounter (principal); D64.9 Anemia, unspecified; F17.200 Nicotine dependence, unspecified, uncomplicated; F12.90 Cannabis use, unspecified, uncomplicated; Z79.899 Other long term (current) drug therapy; V49.49XA Driver injured in collision with other motor vehicles in traffic accident, initial encounter; Y92.410 Unspecified street and highway as the place of occurrence of the external cause; Y93.89 Activity, other specified; Y99.8 Other external cause status
CPT/HCPCS: 72040; 72070; 81025